=== PATIENT | female | born 1965 | race Caucasian/White ===

== ENCOUNTER 2024-04-05 02:55 | Inpatient (IN) | payer MEDICAID ==
[~2024-04-05] VITALS: Ht 170.2 cm; Wt 61.0 kg
[2024-04-05 03:20] LABS: BASOPHILS # (AUTO) 0.1 X10'3 (0-0.2); BASOPHILS % (AUTO) 1.1 % (0-1); EOSINOPHILS # (AUTO) 0.3 X10'3 (0-0.9); EOSINOPHILS % (AUTO) 2.6 % (0-6); HEMATOCRIT 37.1 % (35.0-45.0); HEMOGLOBIN 12.7 g/dl (12.0-16.0); LYMPHOCYTES # (AUTO) 2.3 X10'3 (1.1-4.8); MEAN CORPUSCULAR HGB CONC 34.2 g/dL (33.0-36.5); MEAN CORPUSCULAR VOLUME 87.7 FL (78-98); MEAN PLATELET VOLUME 7.5 FL (7.4-10.4); MONOCYTES # (AUTO) 0.8 X10'3 (0-0.9); MONOCYTES % (AUTO) 7.9 % (2-12); NEUTROPHILS # (AUTO) 6.4 X10'3 (1.8-7.7); NEUTROPHILS % (AUTO) 65.4 % (42-75); PLATELET COUNT 457 X10'3 (140-440); RED BLOOD COUNT 4.23 X10'6 (4.20-5.60); RED CELL DISTRIBUTION WIDTH 15.5 % (11.5-14.5); WHITE BLOOD COUNT 9.8 X10'3 (4.5-11.0)
[2024-04-05 03:37] LABS: ALBUMIN 3.2 G/DL (3.4-5.0); ANION GAP 12 (8-16); BLOOD UREA NITROGEN 36 MG/DL (7-18); BUN/CREATININE RATIO 27.1 (10.0-20.0); CALCIUM 8.6 MG/DL (8.5-10.1); CHLORIDE 104 MMOL/L (99-107); CREATININE 1.33 MG/DL (0.40-0.90); GLUCOSE 118 MG/DL (70-104); POTASSIUM 3.3 MMOL/L (3.5-5.1); SODIUM 137 MMOL/L (135-145); TOTAL CARBON DIOXIDE 21.5 MMOL/L (24-32); eCRCL 43 ML/MIN; eGFR 41 ML/MIN
[2024-04-05] MEDS ORDERED: FURO-150 PO (04:45)
[2024-04-05] MEDS ORDERED: LISI20TA28 PO (04:47)
[2024-04-05] MEDS ORDERED: SPIR25TA5 PO (04:48)
[2024-04-05] MEDS ORDERED: CARV-50 PO (04:49)
[2024-04-05] MEDS ORDERED: magnesium sulf-water 4G/100mL 100 ML IV PRN (04:50)
[2024-04-05] MEDS ORDERED: magnesium sulf-water 2g/50mL 50 ML IV PRN (04:50)
[2024-04-05] MEDS ORDERED: magnesium Cl slow-release 64mg tablet PO PRN (04:50)
[2024-04-05] MEDS ORDERED: potassium Cl 40MEQ/1/2NS 520ml 520 ML IV PRN (04:50)
[2024-04-05] MEDS ORDERED: acetaminophen 325mg tablet PO PRN (04:50)
[2024-04-05] MEDS ORDERED: potassium Cl 20 mEq SR tablet PO PRN (04:50)
[2024-04-05] MEDS ORDERED: magnesium hydroxide 30ml (MOM) UD suspension PO PRN (04:50)
[2024-04-05] MEDS ORDERED: EMPA10TA PO (04:50)
[2024-04-05] MEDS ORDERED: mag hydrox/Alum hydrox/simeth 30ml oral suspension PO PRN (04:50)
[2024-04-05] MEDS ORDERED: ATOR40TA PO (04:51)
[2024-04-05] MEDS ORDERED: ASPI-1265 PO (04:52)
[2024-04-05] MEDS ORDERED: CefTRIAXone 2gm/D5W 50ml BAG 50 ML IV SCH (04:55)
[2024-04-05] MEDS: normal saline 500ml IV soln 500 ML IV ONE (05:13)
[2024-04-05 06:26] LABS: ALANINE AMINOTRANSFERASE 28 U/L (12-78); ALBUMIN 3.3 G/DL (3.4-5.0); ALBUMIN/GLOBULIN RATIO 0.7 (1.1-1.5); ALKALINE PHOSPHATASE 82 IU/L (46-116); ANION GAP 13 (8-16); ASPARTATE AMINO TRANSFERASE 22 U/L (10-37); BILIRUBIN,TOTAL 0.6 MG/DL (0.1-1.0); BLOOD UREA NITROGEN 34 MG/DL (7-18); BUN/CREATININE RATIO 31.8 (10.0-20.0); CALCIUM 8.5 MG/DL (8.5-10.1); CHLORIDE 108 MMOL/L (99-107); CREATININE 1.07 MG/DL (0.40-0.90); GLUCOSE 99 MG/DL (70-104); POTASSIUM 3.2 MMOL/L (3.5-5.1); SODIUM 140 MMOL/L (135-145); TOTAL CARBON DIOXIDE 19.1 MMOL/L (24-32); TOTAL PROTEIN 8.1 G/DL (6.4-8.2); eCRCL 54 ML/MIN; eGFR 52 ML/MIN
[2024-04-05] MEDS: labetalol 20mg/4ml (5mg/ml) syringe IV ONE (06:52)
[2024-04-05] MEDS: docusate sod 100mg capsule PO SCH (08:00)
[2024-04-05] MEDS ORDERED: lisinopril 20mg tablet PO SCH (08:00)
[2024-04-05] MEDS ORDERED: aspirin 81mg, enteric-coated 1 TAB TABLET.DR PO SCH (08:00)
[2024-04-05] MEDS ORDERED: atorvastatin 20mg tablet PO SCH (08:00)
[2024-04-05] MEDS: K and/or MAG REPLACEMENT MC SCH (08:00)
[2024-04-05 08:08] LABS: CHOL/HDL RATIO 3.2 (0.00-4.99); CHOLESTEROL 178 MG/DL (0-200); HDL CHOLESTEROL 55 MG/DL (35-60); LDL CHOLESTEROL 106 MG/DL (50-100); THYROID STIMULATING HORMONE 3.04 ulU/ml (0.34-4.50); TRIGLYCERIDES 79 MG/DL (20-135)
[2024-04-05 08:17] LABS: HEMOGLOBIN A1C 5.4 % (4.5-6.2)
[2024-04-05 08:17] LABS: PRO BRAIN NATRIURETIC PEPTIDE > 30000 PG/ML (0-125)
[2024-04-05 08:57] LABS: FREE T4 (FREE THYROXINE) 1.22 NG/DL (0.73-1.40)
[2024-04-05 09:30] VITALS: BP 151/84; PULSE 74; RESP 16; TEMP 97.9; O2SAT 99
[2024-04-05] MEDS ORDERED: hydrALAZINE 20mg/ml inj. IV PRN (10:15)
[2024-04-05] MEDS: furosemide 10 MG/1 ML 10ml inj IV ONE (10:27)
[2024-04-05] MEDS: aspirin 81mg tab.chew PO SCH (10:29)
[2024-04-05] MEDS: spironolactone 25 MG tablet PO SCH (10:29)
[2024-04-05] MEDS: carVEDilol 12.5mg tablet PO SCH (10:30)
[2024-04-05] MEDS: EMPAGLIFLOZIN 10 MG TABLET PO SCH (10:31)
[2024-04-05] MEDS: enoxaparin 60mg/0.6ml syringe SUBCUT SCH (10:31)
[2024-04-05] MEDS: potassium Cl 20 mEq SR tablet PO PRN (10:38)
[2024-04-05 11:00] VITALS: BP 148/84; PULSE 82; RESP 26; TEMP 98.1; O2SAT 97
[2024-04-05] MEDS: ondansetron/PF 4mg/2ml inj IV PRN (13:26)
[2024-04-05] MEDS: CefTRIAXone 2gm/D5W 50ml BAG 50 ML IV SCH (14:14)
[2024-04-05 15:00] VITALS: BP 137/77; PULSE 72; RESP 10; TEMP 97.6; O2SAT 98
[2024-04-05 18:00] VITALS: BP 125/77; PULSE 69; RESP 12; TEMP 97.6; O2SAT 97
[2024-04-05] MEDS: sacubitril/valsartan 24mg-26mg tablet PO SCH (19:52)
[2024-04-05] MEDS: furosemide 40mg/4ml inj IV SCH (19:54)
[2024-04-05] MEDS: atorvastatin 20mg tablet PO SCH (20:00)
[2024-04-05 20:30] VITALS: RESP 16; O2SAT 95
[2024-04-05 21:02] LABS: BILIRUBIN,URINE NEGATIVE (Neg); CLARITY,URINE CLEAR (Clear); COLOR,URINE YELLOW (Yellow); GLUCOSE, URINE >=1000 mg/dl (Neg); KETONES,URINE NEGATIVE (Neg); LEUKOCYTE ESTERASE ,URINE SMALL (Neg); NITRITES, URINE NEGATIVE (Neg); OCCULT BLOOD,URINE NEGATIVE (Neg); PROTEIN,URINE NEGATIVE (Neg); UROBILINOGEN,URINE 0.2 E.U/dL (0.2-1.0)
[2024-04-05 21:07] LABS: UA COLLECTION TYPE NON-SPECIFIED
[2024-04-05 21:08] LABS: BACTERIA,URINE FEW /HPF (Neg); RBC,URINE NONE SEEN /HPF (0-2); SQUAMOUS EPITHELIAL CELL,UR MODERATE /LPF (FEW)
[2024-04-05 21:26] LABS: URINE AMPHETAMINE SCREEN NEGATIVE (Neg); URINE BARBITUATE SCREEN NEGATIVE (Neg); URINE BENZODIAZEPINES SCREEN NEGATIVE (Neg); URINE CANNABINOID SCREEN POSITIVE (Neg); URINE COCAINE SCREEN NEGATIVE (Neg); URINE METHADONE SCREEN NEGATIVE (Neg); URINE OPIATE SCREEN NEGATIVE (Neg); URINE PHENCYCLIDINE SCREEN NEGATIVE (Neg)
[2024-04-05 22:00] VITALS: BP 139/82; PULSE 76; RESP 14; TEMP 97.8; O2SAT 98
[2024-04-06] VITALS (7 sets, daily range): BP systolic 109–151; BP diastolic 54–83; PULSE 65–77; RESP 12–21; TEMP 97.6–98.8; O2SAT 95–99
[2024-04-06 06:55] LABS: BASOPHILS # (AUTO) 0.1 X10'3 (0-0.2); BASOPHILS % (AUTO) 1.2 % (0-1); EOSINOPHILS # (AUTO) 0.3 X10'3 (0-0.9); EOSINOPHILS % (AUTO) 4.2 % (0-6); HEMATOCRIT 39.1 % (35.0-45.0); LYMPHOCYTES # (AUTO) 1.8 X10'3 (1.1-4.8); LYMPHOCYTES % (AUTO) 24.1 % (21-51); MEAN CORPUSCULAR HEMOGLOBIN 29.4 PG (27.0-31.0); MEAN CORPUSCULAR HGB CONC 33.4 g/dL (33.0-36.5); MEAN CORPUSCULAR VOLUME 88.2 FL (78-98); MEAN PLATELET VOLUME 7.8 FL (7.4-10.4); MONOCYTES # (AUTO) 0.8 X10'3 (0-0.9); MONOCYTES % (AUTO) 10.2 % (2-12); NEUTROPHILS # (AUTO) 4.6 X10'3 (1.8-7.7); NEUTROPHILS % (AUTO) 60.3 % (42-75); PLATELET COUNT 474 X10'3 (140-440); RED BLOOD COUNT 4.43 X10'6 (4.20-5.60); RED CELL DISTRIBUTION WIDTH 15.3 % (11.5-14.5); WHITE BLOOD COUNT 7.6 X10'3 (4.5-11.0)
[2024-04-06 07:04] LABS: APTT 32 SECONDS (22-32); INR 1.1 INR; PROTHROMBIN TIME 11.1 SECONDS (9.0-12.0)
[2024-04-06 07:21] LABS: ALANINE AMINOTRANSFERASE 41 U/L (12-78); ALBUMIN 3.2 G/DL (3.4-5.0); ALBUMIN/GLOBULIN RATIO 0.7 (1.1-1.5); ALKALINE PHOSPHATASE 80 IU/L (46-116); ANION GAP 11 (8-16); ASPARTATE AMINO TRANSFERASE 28 U/L (10-37); BILIRUBIN,TOTAL 0.5 MG/DL (0.1-1.0); BLOOD UREA NITROGEN 39 MG/DL (7-18); BUN/CREATININE RATIO 25.5 (10.0-20.0); CALCIUM 8.9 MG/DL (8.5-10.1); CHLORIDE 103 MMOL/L (99-107); CREATININE 1.53 MG/DL (0.40-0.90); GLUCOSE 106 MG/DL (70-104); PHOSPHORUS 5.5 MG/DL (2.3-4.5); POTASSIUM 4.2 MMOL/L (3.5-5.1); SODIUM 136 MMOL/L (135-145); TOTAL CARBON DIOXIDE 21.8 MMOL/L (24-32); TOTAL PROTEIN 7.8 G/DL (6.4-8.2); eCRCL 38 ML/MIN; eGFR 35 ML/MIN
[2024-04-06] MEDS ORDERED: CefTRIAXone 2gm/D5W 50ml BAG 50 ML IV SCH (08:00)
[2024-04-06] MEDS ORDERED: spironolactone 25 MG tablet PO SCH (08:30)
[2024-04-06] MEDS: clopidogrel 75mg tablet PO SCH (09:06)
[2024-04-06] MEDS ORDERED: ATOR20TA66 PO (10:39)
[2024-04-06] MEDS ORDERED: SULF1TAB49 PO (15:43)
[2024-04-07 02:00] VITALS: BP 124/61; PULSE 62; RESP 19; TEMP 97.8; O2SAT 97
[2024-04-07 06:00] VITALS: BP 104/51; PULSE 59; RESP 19; TEMP 97.4; O2SAT 97
[2024-04-07 06:03] LABS: BASOPHILS # (AUTO) 0.1 X10'3 (0-0.2); BASOPHILS % (AUTO) 1.1 % (0-1); EOSINOPHILS # (AUTO) 0.3 X10'3 (0-0.9); EOSINOPHILS % (AUTO) 4.2 % (0-6); HEMOGLOBIN 14.3 g/dl (12.0-16.0); LYMPHOCYTES # (AUTO) 1.9 X10'3 (1.1-4.8); LYMPHOCYTES % (AUTO) 26.5 % (21-51); MEAN CORPUSCULAR HEMOGLOBIN 30.4 PG (27.0-31.0); MEAN CORPUSCULAR HGB CONC 34.1 g/dL (33.0-36.5); MEAN CORPUSCULAR VOLUME 89.2 FL (78-98); MEAN PLATELET VOLUME 7.6 FL (7.4-10.4); MONOCYTES # (AUTO) 0.9 X10'3 (0-0.9); NEUTROPHILS # (AUTO) 4.1 X10'3 (1.8-7.7); NEUTROPHILS % (AUTO) 56.2 % (42-75); PLATELET COUNT 484 X10'3 (140-440); RED BLOOD COUNT 4.71 X10'6 (4.20-5.60); RED CELL DISTRIBUTION WIDTH 15.8 % (11.5-14.5); WHITE BLOOD COUNT 7.3 X10'3 (4.5-11.0)
[2024-04-07 06:14] LABS: APTT 29 SECONDS (22-32); INR 1.1 INR
[2024-04-07 06:16] LABS: ALANINE AMINOTRANSFERASE 41 U/L (12-78); ALBUMIN 3.4 G/DL (3.4-5.0); ALBUMIN/GLOBULIN RATIO 0.7 (1.1-1.5); ALKALINE PHOSPHATASE 79 IU/L (46-116); ANION GAP 10 (8-16); ASPARTATE AMINO TRANSFERASE 18 U/L (10-37); BILIRUBIN,TOTAL 0.2 MG/DL (0.1-1.0); BLOOD UREA NITROGEN 59 MG/DL (7-18); BUN/CREATININE RATIO 35.5 (10.0-20.0); CALCIUM 9.2 MG/DL (8.5-10.1); CHLORIDE 102 MMOL/L (99-107); CREATININE 1.66 MG/DL (0.40-0.90); GLUCOSE 90 MG/DL (70-104); PHOSPHORUS 4.8 MG/DL (2.3-4.5); POTASSIUM 4.3 MMOL/L (3.5-5.1); SODIUM 137 MMOL/L (135-145); TOTAL CARBON DIOXIDE 24.8 MMOL/L (24-32); eCRCL 35 ML/MIN; eGFR 32 ML/MIN
[2024-04-07] MEDS: furosemide 40mg tablet PO SCH (07:44)
[2024-04-07] MEDS ORDERED: FURO-150 PO (07:49)
[2024-04-07 07:50] VITALS: BP 116/57; PULSE 60
[2024-04-07 08:00] VITALS: RESP 16
[2024-04-07 10:00] VITALS: BP 127/61; PULSE 68; RESP 16; TEMP 98; O2SAT 98
[2024-04-07] MEDS ORDERED: CLOP75TA34 PO (13:41)
[2024-04-07] MEDS ORDERED: SACU1TAB PO (13:41)
== END 2024-04-07 15:03 | disposition home or self-care (01) | DRG 190 ==
LOC: ER 02:56 → ED HOLD 04:51 → PCU 3S 07:44
PROVIDERS: ADMIT Internal Medicine Critical Care Medicine; ATTEND Internal Medicine
DX: I21.4 Non-ST elevation (NSTEMI) myocardial infarction (principal); E87.20 Acidosis, unspecified; N17.9 Acute kidney failure, unspecified; I13.0 Hypertensive heart and chronic kidney disease with heart failure and stage 1 through stage 4 chronic kidney disease, or unspecified chronic kidney disease; I50.22 Chronic systolic (congestive) heart failure; F17.210 Nicotine dependence, cigarettes, uncomplicated; F31.9 Bipolar disorder, unspecified; Z20.822 Contact with and (suspected) exposure to COVID-19; N18.30 Chronic kidney disease, stage 3 unspecified; F43.10 Post-traumatic stress disorder, unspecified; N39.0 Urinary tract infection, site not specified; E87.6 Hypokalemia; F15.10 Other stimulant abuse, uncomplicated; Z90.49 Acquired absence of other specified parts of digestive tract; Z86.73 Personal history of transient ischemic attack (TIA), and cerebral infarction without residual deficits; Z90.710 Acquired absence of both cervix and uterus; Z79.82 Long term (current) use of aspirin; Z79.899 Other long term (current) drug therapy
CPT/HCPCS: 36415; 71045; 80048; 80053; 80061; 80305; 81001; 83036; 83735; 83880; 84100; 84439; 84443; 84484; 85025; 85610; 85730; 87040; 87081; 87502; 87503; 87811; 93005; 93306; 97161; 97530; 99291; G0378; J0696; J1650; J1940; J2405; J3490; J7040

== ENCOUNTER 2024-09-07 20:10 | Inpatient (IN) | payer MEDICAID ==
[~2024-09-07] VITALS: Ht 170.2 cm; Wt 52.5 kg
[~2024-09-07 20:10] MED LIST: ASPI-1265 PO; ATOR20TA66 PO; CARV-50 PO; CLOP75TA34 PO; EMPA10TA PO; FURO-150 PO; SACU1TAB PO; SPIR25TA5 PO
--- NOTE | 2024-09-07 20:15 | Physician Documentation ---
History of Present Illness ~ Stated Complaint: NSTEMI Time Seen by MD: 20:12 HPI Patient presents to the emergency room as a transfer from [facility] for NSTEMI. Patient was seen previously at their facility and diagnosed with a NSTEMI left against medical advice. She presented to their facility complaining of some intermittent chest pain as well as generalized weakness and fatigue and shortness of breath. She is also actively using methamphetamine with history of congestive heart failure in prior stroke with residual deficits in her left leg and slurred speech. She denies any current chest pain Medication Reconciliation Allergies: Coded Allergies: No Known Allergies (Unverified , 04/05/24) Scheduled Aspirin (Aspirin), 1 TAB PO DAILY, (Reported) Atorvastatin Calcium (Atorvastatin Calcium), 80 MG PO DAILY Carvedilol* (Coreg*), 0.5 TAB PO BID, (Reported) Clopidogrel Bisulfate (Clopidogrel), 75 MG PO DAILY Empagliflozin (Jardiance), 1 TAB PO DAILY, (Reported) Furosemide* (Lasix*), 2 TAB PO DAILY Sacubitril/Valsartan (Entresto 24 mg-26 mg Tablet), 1 TABLET PO BID Spironolactone (Spironolactone), 1 TAB PO DAILY, (Reported) Review of Systems ROS All review of systems negative except as per HPI Physical Exam Physical Exam General: Patient is awake, alert, oriented x4 in no acute distress. Some slurring of speech Head: Normocephalic and atraumatic. Eyes: Conjunctival normal. EOMI. PERRL. ENT: Mucous membranes moist. Neck: Supple, trachea is midline. Chest: Clear to auscultation bilaterally without rales, rhonchi, or wheezes. There is no accessory muscle use or retractions. Cardiac: RRR without murmurs, gallops, or rubs. Neuro: Cranial nerves II-XII grossly intact. Weakness noted to flexion extension of left leg Progress Results/Orders Results/Orders Orders - BARRIE DE LA FUENTE MD Heparin 25,000 Unit/250ml Bag (Heparin 2 (09/07/24 20:15) Heparin 10,000 Unit/Ml 1ml (Heparin 10,0 (09/07/24 20:15) Cbc/Diff (09/08/24 03:00) Cbc/Diff (09/09/24 03:00) Cbc/Diff (09/10/24 03:00) Cbc/Diff (09/11/24 03:00) Cbc/Diff (09/12/24 03:00) Page Hospitalist (09/07/24 20:49) Fill Out Med Reconciliation (09/07/24 20:49) Completed Orders - BARRIE DE LA FUENTE MD Pt Inr (09/07/24 20:12) PTT (09/07/24 20:12) Cbc/Diff (09/07/24 20:12) BMP (09/07/24 20:12) Hs Troponin I W Calculations (09/07/24 20:12) No Initial Heparin Drip Bolus (No Initia (09/07/24 20:45) Medications Received in ER Medications (Trade) Dose Ordered Sig/Merari Route PRN Reason Start Time Stop Time Status Last Admin Dose Admin Heparin Sodium/ Dextrose 250 ml @ 6 mls/hr [id number] PRN IV TO MAINTAIN PTT WITHIN RANGE 09/07/24 20:15 09/07/24 21:10 6 MLS/HR Vital Signs 09/07/24 20:13 Temp 97.8 Pulse 86 Resp 16 B/P (MAP) 160/110 Pulse Ox 96 Laboratory Tests Test 09/07/24 20:22 White Blood Count 8.7 Red Blood Count 4.37 Hemoglobin 13.1 Hematocrit 37.4 Mean Corpuscular Volume 85.7 Mean Corpuscular Hemoglobin 30.1 Mean Corpuscular Hemoglobin Concent 35.1 Red Cell Distribution Width 17.0 H Platelet Count 348 Mean Platelet Volume 7.8 Neutrophils (%) (Auto) 63.6 Lymphocytes (%) (Auto) 27.9 Monocytes (%) (Auto) 5.2 Eosinophils (%) (Auto) 2.0 Basophils (%) (Auto) 1.3 H Neutrophils # (Auto) 5.6 Lymphocytes # (Auto) 2.4 Monocytes # (Auto) 0.5 Eosinophils # (Auto) 0.2 Basophils # (Auto) 0.1 CBC Comment Prothrombin Time 10.9 INR International Normalized Ratio 1.1 Activated Partial Thromboplast Time 27 Coagulation Comments Sodium Level 139 Potassium Level 3.2 L Chloride Level 103 Carbon Dioxide Level 22.7 L Anion Gap 13 Blood Urea Nitrogen 40 H Creatinine 1.55 H Estimated GFR/1.73 m2 34 BUN/Creatinine Ratio 25.8 H Glucose Level 108 H Calcium Level 8.9 Troponin I High Sensitivity 1122 *H Albumin 3.3 L Chemistry Comments EKG/XRAY/CT/US/VASC/MRI EKG : Additional Comment EKG interpreted by myself shows time of 2013, rate 81, sinus rhythm, left axis deviation, left bundle-branch block, nonspecific ST-T changes Medical Decision Making Findings Patient presented to the emergency room with being transferred from [facility] for NSTEMI. We will continue heparin. No current chest pain. Departure Admitted to Inpatient Unit: yes, to hospitalist Impression: Primary Impression: NSTEMI (non-ST elevated myocardial infarction) Condition: Guarded Referrals: NO PRIMARY CARE PROVIDER (PCP) Critical Care Note Total Time (mins): 45 Critical Care Note The very real possibility of a deterioration of this patient's condition required the highest level of my preparedness for sudden, emergent intervention. I provided critical care services, which included medication orders, frequent reevaluations of the patient's condition and response to treatment, ordering and reviewing test results, and discussing the case with various consultants. Excludes time spent performing separately billable procedures. The critical care time associated with the care of the patient was 45 minutes not counting procedures Signature Scribe Signature: No scribe Attestation: The note accurately reflects work and decisions made by me.Barrie De La Fuente MD 09/07/24 21:16 BARRIE DE LA FUENTE MD Sep 07, 2024 20:15
[2024-09-07 20:33] LABS: BASOPHILS # (AUTO) 0.1 X10'3 (0-0.2); BASOPHILS % (AUTO) 1.3 % (0-1); EOSINOPHILS # (AUTO) 0.2 X10'3 (0-0.9); HEMATOCRIT 37.4 % (35.0-45.0); HEMOGLOBIN 13.1 g/dl (12.0-16.0); LYMPHOCYTES # (AUTO) 2.4 X10'3 (1.1-4.8); LYMPHOCYTES % (AUTO) 27.9 % (21-51); MEAN CORPUSCULAR HEMOGLOBIN 30.1 PG (27.0-31.0); MEAN CORPUSCULAR HGB CONC 35.1 g/dL (33.0-36.5); MEAN CORPUSCULAR VOLUME 85.7 FL (78-98); MEAN PLATELET VOLUME 7.8 FL (7.4-10.4); MONOCYTES # (AUTO) 0.5 X10'3 (0-0.9); MONOCYTES % (AUTO) 5.2 % (2-12); NEUTROPHILS # (AUTO) 5.6 X10'3 (1.8-7.7); NEUTROPHILS % (AUTO) 63.6 % (42-75); PLATELET COUNT 348 X10'3 (140-440); RED BLOOD COUNT 4.37 X10'6 (4.20-5.60); WHITE BLOOD COUNT 8.7 X10'3 (4.5-11.0)
[2024-09-07 20:44] LABS: ALBUMIN 3.3 G/DL (3.4-5.0); ANION GAP 13 (8-16); BLOOD UREA NITROGEN 40 MG/DL (7-18); BUN/CREATININE RATIO 25.8 (10.0-20.0); CALCIUM 8.9 MG/DL (8.5-10.1); CHLORIDE 103 MMOL/L (99-107); CREATININE 1.55 MG/DL (0.40-0.90); GLUCOSE 108 MG/DL (70-104); SODIUM 139 MMOL/L (135-145); TOTAL CARBON DIOXIDE 22.7 MMOL/L (24-32); eCRCL 31 ML/MIN; eGFR 34 ML/MIN
[2024-09-07 20:45] LABS: POTASSIUM 3.2 MMOL/L (3.5-5.1)
[2024-09-07 20:46] LABS: APTT 27 SECONDS (22-32); INR 1.1 INR; PROTHROMBIN TIME 10.9 SECONDS (9.0-12.0)
[2024-09-07] MEDS: heparin 25,000 UNIT/250ml bag 250 ML IV PRN (21:10)
[2024-09-07] MEDS: HEPARIN DRIP INITAL BOLUS --- DO NOT GIVE/ORDER MC ONE (21:14)
--- NOTE | 2024-09-07 21:23 | ELECTROCARDIOGRAPH REPORT ---
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 Roger Waters Measurements Intervals [place] Rate: 81 P: 70 TN: 171 QRS: -65 QRSD: 187 T: 99 QT: 482 QTc: 560 Interpretive Statements Sinus rhythm Probable left atrial enlargement Left bundle branch block Baseline wander in lead(s) I,II,aVR Electronically Signed On 09-09-2024 18:24:[address] Roger Waters Please click the below link to view image of tracing.
--- NOTE | 2024-09-07 21:30 | ELECTROCARDIOGRAPH REPORT ---
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 Roger Waters Measurements Intervals [place] Rate: 89 P: 81 MN: 159 QRS: -74 QRSD: 184 T: 94 QT: 465 QTc: 566 Interpretive Statements Sinus rhythm Multiple premature complexes, vent & supraven Left bundle branch block Electronically Signed On 09-09-2024 18:24:[address] Roger Waters Please click the below link to view image of tracing.
[2024-09-07] MEDS: heparin 10,000 units/1 ML INJ IV PRN (21:35)
[2024-09-07] MEDS: MESSAGE TO NURSING IV ONE (21:51)
[2024-09-07] MEDS ORDERED: NO HOME MEDS (22:13)
[2024-09-07] MEDS ORDERED: magnesium sulf-water 2g/50mL 50 ML IV PRN (22:20)
[2024-09-07] MEDS ORDERED: magnesium Cl slow-release 64mg tablet PO PRN (22:20)
[2024-09-07] MEDS ORDERED: potassium Cl 20 mEq SR tablet PO PRN (22:20)
[2024-09-07] MEDS ORDERED: potassium Cl 40MEQ/1/2NS 520ml 520 ML IV PRN (22:20)
[2024-09-07] MEDS ORDERED: magnesium sulf-water 4G/100mL 100 ML IV PRN (22:20)
[2024-09-07] MEDS ORDERED: magnesium hydroxide 30ml (MOM) UD suspension PO PRN (22:20)
[2024-09-07] MEDS ORDERED: ondansetron/PF 4mg/2ml inj IV PRN (22:20)
--- NOTE | 2024-09-07 22:46 | HISTORY AND PHYSICAL-Residence ---
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 Patient was admitted in [place] for NSTEMI and she left against medical advice as medical chart. Today patient visited [facility] for progressive shortness of breaths patient started about four days ago. Patient denied any chest pain chest compression profound sweating. As the medical chart she had low appetite and decreased p.o. intake Allergies: Coded Allergies: No Known Allergies (Unverified , 04/05/24) Home Medications Home Medications Active Reported No Home Medications (Home Med List) Each Past Medical History Past Medical History Multiple NSTEMI Heart failure with reduced ejection fraction Past Surgical History Surgical History Comment Appendectomy Hysterectomy Past Social History Smoking: Cigarettes (Smoke one pack a day daily) Alcohol Use: None Drug Use: Marijuana, Methamphetamine ROS ROS The history of present illness included a review of system, which yielded relevant positives and negatives Exam Vitals: Vital Signs Date Time Temp Pulse Resp B/P (MAP) Pulse Ox O2 Delivery O2 Flow Rate FiO2 09/07/24 22:06 99 26 149/79 (102) 98 0 09/07/24 20:13 97.8 General: General: Awake and Alert, cachectic, ill appearing, sleepy, mild distress. HEENT: Conjunctiva pink, Sclera clear, Mucus Membranes dry. Neck: Supple without masses and tenderness. Resp: Lungs clear to auscultation bilaterally. Heart: Regular Rate and rhythm, normal S1 and S2 Abdomen: Soft and non tender Extremities: No cyanosis,clubbing or edema. Skin: Warm and Dry. Neurological: Speech is slurry, alert, and oriented x 4, left lower extremity strength: 3/5 Diagnostic Data Last Recorded Lab Results: 09/07/24202109/07/242021 Diagnostic Data: Laboratory Tests Test 09/07/24 20:22 Prothrombin Time 10.9 SECONDS (9.0-12.0) INR International Normalized Ratio 1.1 INR Activated Partial Thromboplast Time 27 SECONDS (22-32) Coagulation Comments Advance Care Planning Advanced Care plannin - 30 Minutes Additional Plan 59 years old female with history of NSTEMI, CHF with reduced ejection fraction, multiple CVA with left-sided extremity weakness, methamphetamine abuse transferred from [place] to our hospital due to NSTEMI NSTEMI Active methamphetamine abuse EKG: Sinus rhythm, rate 89, multiple PVC, left bundle dora block, Sgarbossa criteria 2 point, low specificity ED physician believes patient had similar EKG/symptoms in the past Elevated troponin 1122 in our facility unchanged from [facility], and is trending down in our hospital Patient had NSTEMI about couple of days ago in [place] as report and patient left against medical advice. Chest x-ray: Patchy opacities in the right lung may reflect atelectasis/scarring versus pneumonia. Patient received aspirin 325 and mg and Lasix. Patient is hemodynamically stable, we will continue aspirin 81, atorvastatin and carvedilol Heparin drip started we will continue Cardiology consult CHF with reduced ejection fraction Echocardiography in 04/09: Dilated LV size and severely reduced function. Mild concentric hypertrophy. LVEF is 10-15%. RV size is normal with severely reduced systolic function. RVSP is estimated at 51 mmHg. Left atrium is mildly dilated. Trileaflet AV appears mildly sclerotic without stenosis. Trace insufficiency. Mild MV annular calcification without stenosis. Mild regurgitation. TV appears normal with moderate regurgitation.Normal pericardium. No effusion. Received one dose IV Lasix, we will continue IV Lasix 20 daily, hospitalist team will evaluate patient in am We will continue metoprolol aspirin at this time Need GDMT optimization after patient was more stable in a.m. Cardiology consult Possible pneumonia Chest x-ray: hest x-ray: Patchy opacities in the right lung may reflect atelectasis/scarring versus pneumonia. 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
[2024-09-07 22:53] LABS: ALANINE AMINOTRANSFERASE 38 U/L (12-78); ASPARTATE AMINO TRANSFERASE 29 U/L (10-37); CHOL/HDL RATIO 3.1 (0.00-4.99); CHOLESTEROL 165 MG/DL (0-200); HDL CHOLESTEROL 54 MG/DL (35-60); LDL CHOLESTEROL 97 MG/DL (50-100); TRIGLYCERIDES 60 MG/DL (20-135)
[2024-09-07 22:54] LABS: HEMOGLOBIN A1C 5.3 % (4.5-6.2)
[2024-09-07] MEDS: atorvastatin 20mg tablet PO SCH (22:55)
[2024-09-07 23:30] LABS: BILIRUBIN,URINE NEGATIVE (Neg); CLARITY,URINE CLEAR (Clear); COLOR,URINE YELLOW (Yellow); GLUCOSE, URINE NEGATIVE (Neg); KETONES,URINE NEGATIVE (Neg); LEUKOCYTE ESTERASE ,URINE NEGATIVE (Neg); NITRITES, URINE NEGATIVE (Neg); OCCULT BLOOD,URINE TRACE-INTACT (Neg); PROTEIN,URINE NEGATIVE (Neg); UROBILINOGEN,URINE 0.2 E.U/dL (0.2-1.0)
[2024-09-07 23:32] LABS: UA COLLECTION TYPE NON-SPECIFIED
[2024-09-07 23:35] VITALS: RESP 15
[2024-09-07 23:35] LABS: MUCUS STRANDS FEW /LPF (Neg); SQUAMOUS EPITHELIAL CELL,UR FEW /LPF (FEW)
[2024-09-07 23:36] LABS: BACTERIA,URINE FEW /HPF (Neg); RBC,URINE 0-2 /HPF (0-2); URINE AMPHETAMINE SCREEN POSITIVE (Neg); URINE BARBITUATE SCREEN NEGATIVE (Neg); URINE BENZODIAZEPINES SCREEN NEGATIVE (Neg); URINE CANNABINOID SCREEN POSITIVE (Neg); URINE COCAINE SCREEN NEGATIVE (Neg); URINE METHADONE SCREEN NEGATIVE (Neg); URINE OPIATE SCREEN NEGATIVE (Neg); URINE PHENCYCLIDINE SCREEN NEGATIVE (Neg); WBC,URINE 0-4 /HPF (0-4)
[2024-09-07 23:50] VITALS: BP 168/117; PULSE 80; RESP 13; TEMP 98.2; O2SAT 97
[2024-09-07 23:57] LABS: PRO BRAIN NATRIURETIC PEPTIDE > 30000 PG/ML (0-125)
[2024-09-08] VITALS (18 sets, daily range): BP systolic 127–172; BP diastolic 60–110; PULSE 59–80; RESP 14–26; TEMP 96.8–97.6; O2SAT 95–99
[2024-09-08] MEDS: metoprolol tartrate 50mg tablet PO ONE (00:05)
--- NOTE | 2024-09-08 01:49 | RADIOLOGY REPORT ---
CHEST RADIOGRAPH Indication: Shortness of breaths Technique: Single frontal view of the chest was obtained COMPARISON: DI CHEST,SINGLE VIEW on DOS: 04/05/24 FINDINGS: Lines and Tubes: None Lungs: Patchy opacities in the right lung may reflect atelectasis/scarring versus pneumonia. COPD. Pleura: No effusion. No pneumothorax. Cardiomediastinal contours: Mild cardiomegaly Bones: Unremarkable IMPRESSION: 1. Patchy opacities in the right lung may reflect atelectasis/scarring versus pneumonia. 2. COPD
[2024-09-08] MEDS ORDERED: ATOR40TA72 (02:55)
[2024-09-08] MEDS ORDERED: CefTRIAXone/D5W-Rocephin 1gm 50 ML IV SCH (03:05)
[2024-09-08] MEDS ORDERED: ipratropium/albuterol 3ml nebule NEB PRN (03:10)
[2024-09-08] MEDS ORDERED: albuterol 2.5 MG/3 ML nebule NEB PRN (03:10)
[2024-09-08 03:49] LABS: ALANINE AMINOTRANSFERASE 33 U/L (12-78); ALBUMIN 2.8 G/DL (3.4-5.0); ALBUMIN/GLOBULIN RATIO 0.7 (1.1-1.5); ALKALINE PHOSPHATASE 83 IU/L (46-116); ANION GAP 10 (8-16); ASPARTATE AMINO TRANSFERASE 25 U/L (10-37); BILIRUBIN,TOTAL 1.3 MG/DL (0.1-1.0); BLOOD UREA NITROGEN 33 MG/DL (7-18); BUN/CREATININE RATIO 24.3 (10.0-20.0); CALCIUM 7.6 MG/DL (8.5-10.1); CHLORIDE 104 MMOL/L (99-107); CREATININE 1.36 MG/DL (0.40-0.90); GLUCOSE 100 MG/DL (70-104); MAGNESIUM 1.7 MG/DL (1.5-2.4); SODIUM 135 MMOL/L (135-145); TOTAL CARBON DIOXIDE 21.4 MMOL/L (24-32); TOTAL PROTEIN 6.6 G/DL (6.4-8.2); eCRCL 36 ML/MIN; eGFR 40 ML/MIN
[2024-09-08] MEDS: potassium Cl 20 mEq SR tablet PO PRN (04:22)
[2024-09-08] MEDS: MESSAGE TO NURSING IV ONE ×3 (05:32→20:14)
[2024-09-08 06:09] LABS: BASOPHILS # (AUTO) 0.1 X10'3 (0-0.2); BASOPHILS % (AUTO) 1.7 % (0-1); EOSINOPHILS # (AUTO) 0.2 X10'3 (0-0.9); EOSINOPHILS % (AUTO) 3.4 % (0-6); HEMATOCRIT 39.5 % (35.0-45.0); HEMOGLOBIN 13.4 g/dl (12.0-16.0); LYMPHOCYTES # (AUTO) 1.9 X10'3 (1.1-4.8); MEAN CORPUSCULAR HEMOGLOBIN 29.8 PG (27.0-31.0); MEAN CORPUSCULAR HGB CONC 33.9 g/dL (33.0-36.5); MEAN CORPUSCULAR VOLUME 87.8 FL (78-98); MEAN PLATELET VOLUME 7.7 FL (7.4-10.4); MONOCYTES # (AUTO) 0.5 X10'3 (0-0.9); MONOCYTES % (AUTO) 6.5 % (2-12); NEUTROPHILS # (AUTO) 4.3 X10'3 (1.8-7.7); NEUTROPHILS % (AUTO) 61.4 % (42-75); PLATELET COUNT 352 X10'3 (140-440); RED CELL DISTRIBUTION WIDTH 16.6 % (11.5-14.5); WHITE BLOOD COUNT 7.1 X10'3 (4.5-11.0)
[2024-09-08] MEDS: docusate sod 100mg capsule PO SCH (08:00)
[2024-09-08] MEDS: K and/or MAG REPLACEMENT MC SCH (08:00)
[2024-09-08] MEDS: CefTRIAXone/D5W-Rocephin 1gm 50 ML IV SCH (09:55)
[2024-09-08] MEDS: azithromycin/NS 500mg/250ml 250 ML IV SCH (09:56)
[2024-09-08] MEDS: carvedilol 6.25mg tablet PO SCH (09:56)
[2024-09-08] MEDS: furosemide 20 MG/2 ML vial IV SCH (09:57)
[2024-09-08] MEDS ORDERED: sacubitril/valsartan 24mg-26mg tablet PO SCH (10:55)
--- NOTE | 2024-09-08 10:58 | PROGRESS NOTE- Residence ---
Progress Note - Resident Providers to CC Resident Creating Document: CHATO JACKSON RES ~ Antibiotic Timeout Antibiotic Ordered?: No Subjective Patient seen and examined at bedside. Denies any chest pain or palpitations. She states he has been taking any of her heart medications and has been off meds for at least two months now. Recommended that she just use GDM T and be compliant with it. She is upset and emotional that she lost her dog. Encouraged her to quit using meth. Objective Vital Signs Date Time Temp Pulse Resp B/P (MAP) Pulse Ox O2 Delivery O2 Flow Rate FiO2 09/08/24 06:30 61 09/08/24 02:00 96.8 26 136/83 (100) 96 09/07/24 23:35 Room Air 0.0 Result Diagram: 09/08/24 0542 09/08/24 0320 General: Awake and Alert, cachectic, ill appearing, sleepy, mild distress. HEENT: Conjunctiva pink, Sclera clear, Mucus Membranes dry. Neck: Supple without masses and tenderness. Resp: Lungs clear to auscultation bilaterally. Heart: Regular Rate and rhythm, normal S1 and S2 Abdomen: Soft and non tender Extremities: No cyanosis,clubbing or edema. Skin: Warm and Dry. Neurological: No gross sensory or motor abnormalities. Coagulation Studies Laboratory Tests Test 09/07/24 20:22 09/08/24 04:11 Prothrombin Time 10.9 SECONDS (9.0-12.0) INR International Normalized Ratio 1.1 INR Activated Partial Thromboplast Time 27 SECONDS (22-32) APTT (Heparin Protocol) 65 SECONDS (45-60) H Coagulation Comments Assessment Assessment 59 years old female with history of NSTEMI, CHF with reduced ejection fraction, multiple CVA with left-sided extremity weakness, methamphetamine abuse transferred from [place] to our hospital due to NSTEMI Plan Plan NSTEMI Active methamphetamine abuse EKG: Sinus rhythm, rate 89, multiple PVC, left bundle dora block, Sgarbossa criteria 2 point, low specificity ED physician believes patient had similar EKG/symptoms in the past Elevated troponin 1122 in our facility unchanged from [facility], and is trending down in our hospital Patient had NSTEMI about couple of days ago in [place] as report and patient left against medical advice. Chest x-ray: Patchy opacities in the right lung may reflect atelectasis/scarring versus pneumonia. Patient received aspirin 325 and mg and Lasix. Patient is hemodynamically stable, we will continue aspirin 81, atorvastatin and carvedilol Heparin drip started we will continue 09/08/2024 Troponins: 1122,1189,876 She was diagnosed to have a left bundle-branch block in March 2024 and she was admitted here for similar complaints, she was discharged on oral medications states that she has not been taking medications since at least two months now Continue heparin drip for now Cardiology consulted, appreciate recommendations CHF with reduced ejection fraction Echocardiography in 04/09: Dilated LV size and severely reduced function. Mild concentric hypertrophy. LVEF is 10-15%. RV size is normal with severely reduced systolic function. RVSP is estimated at 51 mmHg. Left atrium is mildly dilated. Trileaflet AV appears mildly sclerotic without stenosis. Trace insufficiency. Mild MV annular calcification without stenosis. Mild regurgitation. TV appears normal with moderate regurgitation.Normal pericardium. No effusion. Received one dose IV Lasix, we will continue IV Lasix 20 daily, hospitalist team will evaluate patient in am We will continue metoprolol aspirin at this time Need GDMT optimization after patient was more stable in a.m. 09/08/2024 CHF with severely reduced EF GDMT: Currently on Coreg 6.25 p.o. b.i.d. furosemide 20 IV daily, start Entresto and Jardiance 10 p.o. daily. If blood pressure tolerates can add Aldactone tomorrow. Hold for blood pressure less than 90 and heart rate less than 60 Monitor I's and os Low-sodium diet Possible pneumonia Chest x-ray: hest x-ray: Patchy opacities in the right lung may reflect atelectasis/scarring versus pneumonia. 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 Code Status: full DVT prophylaxis: On Heparin drip Analgesia/sedation: None Line/tube: Peripheral GI prophylaxis: Protonix Diet: Heart healthy, sodium restricted Prognosis: Guarded Disposition: Continue medical management. Date of Service: Sep 08, 2024 Billing Provider: UMESH BRANHAM MD Common Visit Codes: [id number] INP/OBS CARE(HIGH) CHATO JACKSON, RES Sep 08, 2024 10:58 UMESH BRANHAM MD Sep 08, 2024 21:43
[2024-09-08] MEDS: ipratropium/albuterol 3ml nebule NEB SCH (12:00)
[2024-09-08] MEDS: EMPAGLIFLOZIN 10 MG TABLET PO SCH (18:20)
[2024-09-08] MEDS: sacubitril/valsartan 24mg-26mg tablet PO SCH (20:00)
[2024-09-08 22:27] LABS: POTASSIUM 4.8 MMOL/L (3.5-5.1)
[2024-09-08 23:03] LABS: PRO BRAIN NATRIURETIC PEPTIDE > 30000 PG/ML (0-125)
[2024-09-09] VITALS (17 sets, daily range): BP systolic 99–137; BP diastolic 48–66; PULSE 63–86; RESP 14–24; TEMP 97–97.7; O2SAT 94–99
[2024-09-09] MEDS: MESSAGE TO NURSING IV ONE ×3 (03:42→17:06)
[2024-09-09 07:13] LABS: ALKALINE PHOSPHATASE, S 97 IU/L (44-121)
[2024-09-09 07:16] LABS: BASOPHILS # (AUTO) 0.1 X10'3 (0-0.2); BASOPHILS % (AUTO) 1.3 % (0-1); EOSINOPHILS # (AUTO) 0.2 X10'3 (0-0.9); EOSINOPHILS % (AUTO) 1.9 % (0-6); HEMATOCRIT 40.1 % (35.0-45.0); HEMOGLOBIN 13.3 g/dl (12.0-16.0); LYMPHOCYTES # (AUTO) 2.5 X10'3 (1.1-4.8); LYMPHOCYTES % (AUTO) 28.3 % (21-51); MEAN CORPUSCULAR HEMOGLOBIN 29.1 PG (27.0-31.0); MEAN CORPUSCULAR HGB CONC 33.1 g/dL (33.0-36.5); MEAN CORPUSCULAR VOLUME 87.7 FL (78-98); MEAN PLATELET VOLUME 8.5 FL (7.4-10.4); MONOCYTES # (AUTO) 0.5 X10'3 (0-0.9); MONOCYTES % (AUTO) 5.9 % (2-12); NEUTROPHILS # (AUTO) 5.6 X10'3 (1.8-7.7); NEUTROPHILS % (AUTO) 62.6 % (42-75); PLATELET COUNT 348 X10'3 (140-440); RED BLOOD COUNT 4.57 X10'6 (4.20-5.60); RED CELL DISTRIBUTION WIDTH 16.6 % (11.5-14.5); WHITE BLOOD COUNT 8.9 X10'3 (4.5-11.0)
[2024-09-09 07:30] LABS: ALANINE AMINOTRANSFERASE 29 U/L (12-78); ALBUMIN/GLOBULIN RATIO 0.7 (1.1-1.5); ALKALINE PHOSPHATASE 87 IU/L (46-116); ANION GAP 14 (8-16); ASPARTATE AMINO TRANSFERASE 22 U/L (10-37); BILIRUBIN,TOTAL 0.5 MG/DL (0.1-1.0); BLOOD UREA NITROGEN 50 MG/DL (7-18); BUN/CREATININE RATIO 24.8 (10.0-20.0); CALCIUM 8.7 MG/DL (8.5-10.1); CHLORIDE 105 MMOL/L (99-107); CREATININE 2.02 MG/DL (0.40-0.90); GLUCOSE 103 MG/DL (70-104); MAGNESIUM 2.1 MG/DL (1.5-2.4); POTASSIUM 4.7 MMOL/L (3.5-5.1); SODIUM 139 MMOL/L (135-145); TOTAL CARBON DIOXIDE 20.4 MMOL/L (24-32); TOTAL PROTEIN 7.1 G/DL (6.4-8.2); eCRCL 24 ML/MIN; eGFR 25 ML/MIN
--- NOTE | 2024-09-09 12:26 | PROGRESS NOTE ---
Progress Note Cardiology Providers to CC ~ Subjective Subjective Patient seen and examined yesterday and today. Patient appears to be much calmer this morning. Denies any chest pain or shortness of breath. Objective Result Diagram: 09/09/2463409/09/24634 Objective General: Normal body habitus, no acute distress, HEENT: Sclerae clear, PERRL, gums without lesions or bleeding, oropharynx clear without erythema or exudate. Neck: Supple without enlargement of the thyroid, or lymphadenopathy, Chest: Normal size and shape, no tenderness, nonlabored breathing, Breath sounds diminished bibasilar Heart: Regular in rate and rhythm, S1 and S2 normal, no S3-S4 or murmurs. Abdomen: Soft, nontender, no organomegaly, bowel sounds present. Extremities: No edema cyanosis or clubbing. Coagulation Studies Laboratory Tests Test 09/07/24 20:22 09/09/24 10:16 Prothrombin Time 10.9 SECONDS (9.0-12.0) INR International Normalized Ratio 1.1 INR Activated Partial Thromboplast Time 27 SECONDS (22-32) APTT (Heparin Protocol) 57 SECONDS (45-60) Coagulation Comments Problem\Assessment\Plan Additional Plan 1. 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 Social work consult to arrange PMD follow up and evaluation of her social situation. 2. Chronic systolic heart failure: Are 1200 cc fluid restriction titrate diuretics as required. 3. Chronic methamphetamine abuse: Recommend abuse cessation 4. Chronic tobacco use: Stopped tobacco abuse. 5. Other comorbidities include anxiety, CKD with a BUN of 50 creatinine of 2.02 Suspected pulmonary infection on antibiotics MONTSE ISLAS MD Sep 09, 2024 12:26
--- NOTE | 2024-09-09 13:12 | ELECTROCARDIOGRAPH REPORT ---
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 STEFANI Morales Measurements Intervals [place] Rate: 74 P: 79 [place]: 166 QRS: -72 QRSD: 178 T: 91 QT: 516 QTc: 573 Interpretive Statements Sinus rhythm Atrial premature complex Left bundle branch block Electronically Signed On 09-09-2024 13:46:[address] STEFANI Morales Please click the below link to view image of tracing.
--- NOTE | 2024-09-09 13:42 | PROGRESS NOTE- Residence ---
Progress Note - Resident Providers to CC Resident Creating Document: ELOISA JACKSON RES ~ Antibiotic Timeout Antibiotic Ordered?: No Subjective Patient seen and examined at bedside. States she is feeling better today. She continues to have shortness of breath. Encouraged to try and walk around. Explained to her regarding her EF and the medications that she needs to be compliant with. Verbalized understanding. Objective Vital Signs Date Time Temp Pulse Resp B/P (MAP) Pulse Ox O2 Delivery O2 Flow Rate FiO2 09/09/24 11:00 97.7 73 18 99/66 (77) 99 Room Air 09/09/24 08:00 0.0 21 Result Diagram: 09/09/24 0635 09/09/24 0635 General: Awake and Alert, cachectic, ill appearing, sleepy, mild distress. HEENT: Conjunctiva pink, Sclera clear, Mucus Membranes dry. Neck: Supple without masses and tenderness. Resp: Lungs clear to auscultation bilaterally. Heart: Regular Rate and rhythm, normal S1 and S2 Abdomen: Soft and non tender Extremities: No cyanosis,clubbing or edema. Skin: Warm and Dry. Neurological: No gross sensory or motor abnormalities. Coagulation Studies Laboratory Tests Test 09/07/24 20:22 09/09/24 10:16 Prothrombin Time 10.9 SECONDS (9.0-12.0) INR International Normalized Ratio 1.1 INR Activated Partial Thromboplast Time 27 SECONDS (22-32) APTT (Heparin Protocol) 57 SECONDS (45-60) Coagulation Comments Assessment Assessment 59 years old female with history of NSTEMI, CHF with reduced ejection fraction, multiple CVA with left-sided extremity weakness, methamphetamine abuse transferred from [place] to our hospital due to NSTEMI Plan Plan NSTEMI Active methamphetamine abuse EKG: Sinus rhythm, rate 89, multiple PVC, left bundle dora block, Sgarbossa criteria 2 point, low specificity ED physician believes patient had similar EKG/symptoms in the past Elevated troponin 1122 in our facility unchanged from [facility], and is trending down in our hospital Patient had NSTEMI about couple of days ago in [place] as report and patient left against medical advice. Chest x-ray: Patchy opacities in the right lung may reflect atelectasis/scarring versus pneumonia. Patient received aspirin 325 and mg and Lasix. Patient is hemodynamically stable, we will continue aspirin 81, atorvastatin and carvedilol Heparin drip started we will continue 09/08/2024 Troponins: 1122,1189,876 She was diagnosed to have a left bundle-branch block in March 2024 and she was admitted here for similar complaints, she was discharged on oral medications states that she has not been taking medications since at least two months now Continue heparin drip for now Cardiology consulted, appreciate recommendations 09/09/2024 DC Heparin drip tonight at 8:00 p.m. Resume aspirin 81 Plavix 75 mg and statin 40 mg with goal LDL less than 60 CHF with reduced ejection fraction Echocardiography in 04/09: Dilated LV size and severely reduced function. Mild concentric hypertrophy. LVEF is 10-15%. RV size is normal with severely reduced systolic function. RVSP is estimated at 51 mmHg. Left atrium is mildly dilated. Trileaflet AV appears mildly sclerotic without stenosis. Trace insufficiency. Mild MV annular calcification without stenosis. Mild regurgitation. TV appears normal with moderate regurgitation.Normal pericardium. No effusion. Received one dose IV Lasix, we will continue IV Lasix 20 daily, hospitalist team will evaluate patient in am We will continue metoprolol aspirin at this time Need GDMT optimization after patient was more stable in a.m. 09/08/2024 CHF with severely reduced EF GDMT: Currently on Coreg 6.25 p.o. b.i.d. furosemide 20 IV daily, start Entresto and Jardiance 10 p.o. daily. If blood pressure tolerates can add Aldactone tomorrow. Hold for blood pressure less than 90 and heart rate less than 60 Monitor I's and os Low-sodium diet 09/09/2024 Patient is able to tolerate GDMT so far, documented blood pressure this morning appears to be soft, we will hold off on adding Aldactone at this time. Recommended to document Is&Os Acute on chronic kidney failure likely secondary to vasomotor nephropathy BUN 40, creatinine 1.55 IV Lasix 20 daily, we will continue monitoring bmp 09/09/2024 DCed Lasix today as the creatinine went up 2.02 Appears to be euvolemic, can not give her any IV fluids at this time as she does have mild shortness of breath had an EF of 10%, reassess fluid status in a.m. and continue to monitor creatinine level Possible pneumonia Chest x-ray: hest x-ray: Patchy opacities in the right lung may reflect atelectasis/scarring versus pneumonia. Ceftriaxone azithromycin started, albuterol, DuoNeb started Methamphetamine abuse Substance abuse navigator Reviewed medications, she is not taking any home medications. Code Status: full DVT prophylaxis: On Heparin drip Analgesia/sedation: None Line/tube: Peripheral GI prophylaxis: Protonix Diet: Heart healthy, sodium restricted Prognosis: Guarded Disposition: Continue medical management. Eloisa Jackson IM Resident PGY2 Date of Service: Sep 09, 2024 Billing Provider: UMESH BRANHAM MD Common Visit Codes: 25726-ADHEDSONOP INP/OBS CARE(HIGH) ELOISA JACKSON, GOLDIE Sep 09, 2024 13:42 UMESH BRANHAM MD Sep 09, 2024 21:09
--- NOTE | 2024-09-09 15:29 | CONSULTATION ---
DATE OF CONSULTATION: 09/08/2024 DICTATING PHYSICIAN: STEFANI Morales MD CARDIOLOGY CONSULTATION IDENTIFICATION: The patient is a 59-year-old, postmenopausal, female with a history of chronic methamphetamines abuse and chronic history of smoking, COPD, prior history of CVA, who was admitted to [facility] for NSTEMI, left against AMA and then came back to the hospital with progressive increasing shortness of breath and then was transferred here to [facility]. The patient also was hospitalized at [facility] from 04/05/2024 to 04/07/2024. At that time, she has diagnosis of cardiomyopathy, CKD, CVA, bipolar disorder, and congestive heart failure. During that admission, the patient's echocardiogram on 04/05/2024 showed ejection fraction of 10% to 15% with trace AR, mild MR, and moderate TR. PA systolic pressure of 51 mmHg. During this admission, her methamphetamine was positive. During last hospitalization, the patient was primarily managed medically. He was put on aspirin, Plavix, high-dose statins, carvedilol, Jardiance, and started on Entresto. However, the patient has stopped most of those medications, and she lives alone. She has been on disability since her early age and just ambulates around her house. She reports dyspnea was going uphill, NYHA dyspnea class 2 to 3. No history of stent, palpitations, or syncopal episode. No history of congenital rheumatic heart disease. PAST MEDICAL HISTORY: * Methamphetamine-induced cardiomyopathy. * Chronic systolic heart failure. * Hypertension. * History of CVA. * Chronic kidney disease. * Bipolar disorder. * Followup PTSD. POST SURGICAL HISTORY: Hysterectomy and appendectomy. SOCIAL HISTORY: The patient lives alone. She has been smoking one pack per day from age 9. She uses occasional alcohol. No history of substance abuse. REVIEW OF SYSTEMS: HEENT: Wears reading glasses, not hearing impaired. RESPIRATORY: She has exertional shortness. MUSCULOSKELETAL: No arthralgia. CENTRAL NERVOUS SYSTEM: History of strokes present. PSYCHIATRIC: The patient is conscious, alert, oriented, and very anxious. PHYSICAL EXAMINATION: VITAL SIGNS: Temperature 97.4, pulse 69 per minute, blood pressure 104/54, 97% pulse ox on room air. NECK: Mild JVD present. Carotids are equally well felt. CARDIAC: Reveals regular rate and rhythm. S1 and S2 normal. No S3 or S4. LUNGS: Decreased breath sounds bibasilarly. ABDOMEN: Soft, bowel sounds present. EXTREMITIES: No edema, cyanosis, or clubbing. LABORATORY DATA: WBC 7.3, hemoglobin 14.3, hematocrit 42, and platelet count 484. Sodium 137, potassium 4.3, chloride 102, carbon dioxide 25, BUN 59, creatinine 1.66, proBNP more than 30,000. Labs from 09/08/2024, WBC 7.1, hemoglobin 13.4, hematocrit 39.5, platelet count 352. Sodium 135, potassium 3, chloride 104, carbon dioxide 21, BUN 33, creatinine 1.36, troponin was 876. DIAGNOSTIC DATA: Chest x-ray shows cardiomegaly with CHF. IMPRESSION AND PLAN: A 59-year-old, postmenopausal, female with: * Chronic methamphetamine abuse with methamphetamine complicated induced cardiomyopathy. Recommend GDMP therapy with carvedilol, losartan, Jardiance, and spironolactone. * Chronic systolic heart failure 1200 fluid restriction, low-salt diet. Titrate diuretics as required. The patient is counseled on CHF management. * Mildly elevated troponin related to probably methamphetamine abuse. Recommended continued medical therapy. * Hypertension. Continue medical therapy. * Other comorbidities include bipolar disorder, history of CVA, medical noncompliance, and social issues. Recommend followup with PMD licensed clinical social worker. * Moderate tricuspid regurgitation with 51 mmHg. * History of COPD. Counselled on smoking cessation. STEFANI Morales MD TID: [id number] RECEIPT: [id number] BC/TAD/AMA MTDD
[2024-09-10] VITALS (12 sets, daily range): BP systolic 115–130; BP diastolic 61–70; PULSE 61–84; RESP 12–23; TEMP 97.3–97.8; O2SAT 96–100
[2024-09-10] MEDS: acetaminophen 325mg tablet PO PRN (04:11)
[2024-09-10 06:21] LABS: BASOPHILS # (AUTO) 0.1 X10'3 (0-0.2); BASOPHILS % (AUTO) 1.1 % (0-1); EOSINOPHILS # (AUTO) 0.3 X10'3 (0-0.9); EOSINOPHILS % (AUTO) 3.6 % (0-6); HEMATOCRIT 35.7 % (35.0-45.0); HEMOGLOBIN 12.2 g/dl (12.0-16.0); LYMPHOCYTES # (AUTO) 1.7 X10'3 (1.1-4.8); MEAN CORPUSCULAR HEMOGLOBIN 29.6 PG (27.0-31.0); MEAN PLATELET VOLUME 8.2 FL (7.4-10.4); MONOCYTES # (AUTO) 0.6 X10'3 (0-0.9); NEUTROPHILS % (AUTO) 65.3 % (42-75); PLATELET COUNT 340 X10'3 (140-440); RED BLOOD COUNT 4.11 X10'6 (4.20-5.60); RED CELL DISTRIBUTION WIDTH 16.7 % (11.5-14.5); WHITE BLOOD COUNT 7.6 X10'3 (4.5-11.0)
[2024-09-10 06:38] LABS: ALANINE AMINOTRANSFERASE 29 U/L (12-78); ALBUMIN 2.7 G/DL (3.4-5.0); ALBUMIN/GLOBULIN RATIO 0.7 (1.1-1.5); ALKALINE PHOSPHATASE 74 IU/L (46-116); ANION GAP 12 (8-16); ASPARTATE AMINO TRANSFERASE 15 U/L (10-37); BILIRUBIN,TOTAL 0.3 MG/DL (0.1-1.0); BLOOD UREA NITROGEN 47 MG/DL (7-18); CALCIUM 8.7 MG/DL (8.5-10.1); CHLORIDE 105 MMOL/L (99-107); CREATININE 1.96 MG/DL (0.40-0.90); GLUCOSE 109 MG/DL (70-104); MAGNESIUM 1.9 MG/DL (1.5-2.4); POTASSIUM 4.6 MMOL/L (3.5-5.1); SODIUM 139 MMOL/L (135-145); TOTAL CARBON DIOXIDE 21.6 MMOL/L (24-32); TOTAL PROTEIN 6.5 G/DL (6.4-8.2); eCRCL 25 ML/MIN; eGFR 26 ML/MIN
[2024-09-10] MEDS ORDERED: IPRA3AMP9 NEB (09:05)
[2024-09-10] MEDS ORDERED: ALBU2.5V7 NEB (09:05)
[2024-09-10] MEDS ORDERED: EMPA10TA PO (09:05)
[2024-09-10] MEDS ORDERED: CARV6.253 PO (09:05)
[2024-09-10] MEDS ORDERED: CEFD300C3 PO (09:05)
[2024-09-10] MEDS ORDERED: CLOP75TA34 PO (09:05)
[2024-09-10] MEDS ORDERED: SACU1TAB PO (09:05)
[2024-09-10] MEDS ORDERED: ASPI-1071 PO (09:05)
[2024-09-10] MEDS ORDERED: FURO-150 PO (09:06)
[2024-09-10] MEDS: clopidogrel 75mg tablet PO SCH (09:09)
[2024-09-10] MEDS: aspirin 81mg, enteric-coated 1 TAB TABLET.DR PO SCH (09:09)
--- NOTE | 2024-09-10 13:41 | DISCHARGE SUMMARY-Residence ---
Discharge Summary Providers to CC Resident Creating Document: CHATO JACKSON RES ~ Discharge Summary Admission Diagnosis: NSTEMI, CHF Hospital Course DATE OF ADMISSION: 09/07/2024 DATE OF DISCHARGE: 09/10/2024 Hospital course same as mentioned discharge summary. Discharge Diagnosis\Comment: NSTEMI Active methamphetamine abuse CHF with reduced ejection fraction Acute on chronic kidney failure likely secondary to vasomotor nephropathy Possible pneumonia Methamphetamine abuse Operations\Procedures: None Consultants: Dr Morales Complications: None Condition on DC: Stable New Medications: Albuterol Sulfate (Albuterol Sulfate) 2.5 Mg/3 Ml Vial.neb 1 VIAL NEB Q2H PRN for wheezing, #1 INHALER 0 Refills Cefdinir* (Cefdinir*) 300 Mg Capsule 1 CAP PO Q12H for 5 Days, #10 CAP Furosemide (Lasix) 20 Mg Tablet 20 MG PO DAILY for 30 Days, #30 TAB Aspirin (Ecotrin*) 81 Mg Tablet.dr 1 TAB PO DAILY, #30 TAB.SR Carvedilol (Carvedilol) 6.25 Mg Tablet 6.25 MG PO BID for 30 Days, #60 TAB Clopidogrel Bisulfate (Clopidogrel) 75 Mg Tablet 75 MG PO DAILY, #30 TAB 1 Refill Do not stop medication unless instructed by prescriber. Empagliflozin (Jardiance) 10 Mg Tablet 10 MG PO DAILY, #30 TAB 1 Refill Ipratropium/Albuterol Sulfate (IPRAT-ALBUT 0.5-3(2.5) MG/3 ML nebule) 0.5 Mg-3 Mg (2.5 Mg Base)/3 Ml Ampul.neb 3 ML NEB Q4HRT, #1 INHALER Sacubitril/Valsartan (Entresto 24 mg-26 mg Tablet) 24 Mg-26 Mg Tablet 1 TABLET PO BID for 30 Days, #60 TAB Continued Medications: Atorvastatin Calcium (Atorvastatin Calcium) 40 Mg Tablet Home Med List (No Home Medications) Each Discharge Summary: As per HPI: 59 years old female with history of NSTEMI, CKD, CVA with left lower extremity deficit and slurred speech, bipolar disorder, heart failure with reduced ejection fraction 15%, methamphetamine abuse transferred from [place] to our hospital due to NSTEMI. Patient was admitted in [place] for NSTEMI and she left against medical advice as medical chart. Today patient visited [facility] for progressive shortness of breaths patient started about four days ago. Patient denied any chest pain chest compression profound sweating. As the medical chart she had low appetite and decreased p.o. intake Hospital course: On further evaluation EKG sinus rhythm with heart rate 89 multiple PVCs and left bundle-branch block. Troponins [id number]. Was started on the heparin drip times 48 hours. Chest x-ray showed patchy opacities in the right lung reflecting atelectasis versus pneumonia. She also has CHF with severely reduced EF 10-15% RVSP 51. Started GDM T Coreg 6.25 p.o. b.i.d. furosemide 20 p.o. daily Entresto 37240 tablet p.o. b.i.d. and Jardiance 10 p.o. daily. She was able to tolerate the above medications well. Recommended strict Is&Os and low-sodium diet. She had SHAUN which improved. Chest x-ray showed concerns for possible pneumonia and was started on empiric antibiotics. UTox positive for methamphetamine substance use navigator was consulted. Heparin drip was discontinued after 48 hours and she was started on aspirin Plavix and statin. Tape Sewing Machine Operator was consulted, recommended medical management. Recommended to be strictly compliant with medication and stopped using methamphetamines. Also given her breathing treatments with DuoNebs and albuterol. Her hospital course is uncomplicated she is hemodynamically stable on the day of discharge and her physical exam is as follows: General: Awake and Alert, cachectic, ill appearing, sleepy, mild distress. HEENT: Conjunctiva pink, Sclera clear, Mucus Membranes dry. Neck: Supple without masses and tenderness. Resp: Lungs clear to auscultation bilaterally. Heart: Regular Rate and rhythm, normal S1 and S2 Abdomen: Soft and non tender Extremities: No cyanosis,clubbing or edema. Skin: Warm and Dry. Neurological: No gross sensory or motor abnormalities. Discharge medications can be found above. Patient is being discharged with the advice to follow up with primary care within a week. Laboratory Tests Test 09/08/24 18:12 09/08/24 21:44 09/09/24 02:40 09/09/24 06:35 APTT (Heparin Protocol) 30 SECONDS 27 SECONDS Coagulation Comments Potassium Level 4.8 MMOL/L 4.7 MMOL/L Pro-B-Type Natriuretic Peptide > 62921 PG/ML White Blood Count 8.9 X10'3 Red Blood Count 4.57 X10'6 Hemoglobin 13.3 g/dl Hematocrit 40.1 % Mean Corpuscular Volume 87.7 FL Mean Corpuscular Hemoglobin 29.1 PG Mean Corpuscular Hemoglobin Concent 33.1 g/dL Red Cell Distribution Width 16.6 % Platelet Count 348 X10'3 Mean Platelet Volume 8.5 FL Neutrophils (%) (Auto) 62.6 % Lymphocytes (%) (Auto) 28.3 % Monocytes (%) (Auto) 5.9 % Eosinophils (%) (Auto) 1.9 % Basophils (%) (Auto) 1.3 % Neutrophils # (Auto) 5.6 X10'3 Lymphocytes # (Auto) 2.5 X10'3 Monocytes # (Auto) 0.5 X10'3 Eosinophils # (Auto) 0.2 X10'3 Basophils # (Auto) 0.1 X10'3 CBC Comment Sodium Level 139 MMOL/L Chloride Level 105 MMOL/L Carbon Dioxide Level 20.4 MMOL/L Anion Gap 14 Blood Urea Nitrogen 50 MG/DL Creatinine 2.02 MG/DL Estimated GFR/1.73 m2 25 ML/MIN BUN/Creatinine Ratio 24.8 Glucose Level 103 MG/DL Calcium Level 8.7 MG/DL Magnesium Level 2.1 MG/DL Total Bilirubin 0.5 MG/DL Aspartate Amino Transf (AST/SGOT) 22 U/L Alanine Aminotransferase (ALT/SGPT) 29 U/L Alkaline Phosphatase 87 IU/L Total Protein 7.1 G/DL Albumin 3.0 G/DL Globulin 4.1 G/DL Albumin/Globulin Ratio 0.7 Chemistry Comments Test 09/09/24 10:16 09/09/24 15:57 09/09/24 21:48 09/10/24 05:45 APTT (Heparin Protocol) 57 SECONDS 58 SECONDS 50 SECONDS Coagulation Comments White Blood Count 7.6 X10'3 Red Blood Count 4.11 X10'6 Hemoglobin 12.2 g/dl Hematocrit 35.7 % Mean Corpuscular Volume 87.0 FL Mean Corpuscular Hemoglobin 29.6 PG Mean Corpuscular Hemoglobin Concent 34.0 g/dL Red Cell Distribution Width 16.7 % Platelet Count 340 X10'3 Mean Platelet Volume 8.2 FL Neutrophils (%) (Auto) 65.3 % Lymphocytes (%) (Auto) 22.0 % Monocytes (%) (Auto) 8.0 % Eosinophils (%) (Auto) 3.6 % Basophils (%) (Auto) 1.1 % Neutrophils # (Auto) 5.0 X10'3 Lymphocytes # (Auto) 1.7 X10'3 Monocytes # (Auto) 0.6 X10'3 Eosinophils # (Auto) 0.3 X10'3 Basophils # (Auto) 0.1 X10'3 CBC Comment Sodium Level 139 MMOL/L Potassium Level 4.6 MMOL/L Chloride Level 105 MMOL/L Carbon Dioxide Level 21.6 MMOL/L Anion Gap 12 Blood Urea Nitrogen 47 MG/DL Creatinine 1.96 MG/DL Estimated GFR/1.73 m2 26 ML/MIN BUN/Creatinine Ratio 24.0 Glucose Level 109 MG/DL Calcium Level 8.7 MG/DL Magnesium Level 1.9 MG/DL Total Bilirubin 0.3 MG/DL Aspartate Amino Transf (AST/SGOT) 15 U/L Alanine Aminotransferase (ALT/SGPT) 29 U/L Alkaline Phosphatase 74 IU/L Total Protein 6.5 G/DL Albumin 2.7 G/DL Globulin 3.8 G/DL Albumin/Globulin Ratio 0.7 Chemistry Comments *Problems/Diagnosis: (1) NSTEMI (non-ST elevated myocardial infarction) Status: Acute Total Time Spent on D/C: > 30 Minutes Date of Service: Sep 10, 2024 Billing Provider: UMESH BRANHAM MD Common Visit Codes: 02710-EMS/OBS DISCH DAY >30min CHATO JACKSON RES Sep 10, 2024 13:41 UMESH BRANHAM MD Sep 12, 2024 12:00
--- NOTE | 2024-09-10 19:35 | PROGRESS NOTE ---
Progress Note Cardiology Providers to CC ~ Subjective Subjective Patient seen and examined this morning before discharge. Overall patient is feeling better with no chest pain. Improved shortness of breath. Objective Result Diagram: 09/10/24 0545 09/10/24 0545 Objective General: Normal body habitus, no acute distress, HEENT: Sclerae clear, PERRL, gums without lesions or bleeding, oropharynx clear without erythema or exudate. Neck: Supple without enlargement of the thyroid, or lymphadenopathy, Chest: Normal size and shape, no tenderness, nonlabored breathing, Breath sounds improved in bases Heart: Regular in rate and rhythm, S1 and S2 normal, no S3-S4 or murmurs. Abdomen: Soft, nontender, no organomegaly, bowel sounds present. Extremities: No edema cyanosis or clubbing. Coagulation Studies Laboratory Tests Test 09/07/24 20:22 09/09/24 21:48 Prothrombin Time 10.9 SECONDS (9.0-12.0) INR International Normalized Ratio 1.1 INR Activated Partial Thromboplast Time 27 SECONDS (22-32) APTT (Heparin Protocol) 50 SECONDS (45-60) Coagulation Comments Problem\Assessment\Plan Additional Plan 1. * Chronic methamphetamine abuse with methamphetamine complicated induced cardiomyopathy. Recommend GDMP therapy with carvedilol, losartan, Jardiance, and spironolactone. 2. * Chronic systolic heart failure, recommend 1200 cc fluid restriction, low- salt diet. Titrate diuretics as required. The patient is counseled on CHF management. 3. * Mildly elevated troponin related to probably methamphetamine abuse. Recommended continued medical therapy. 4. * Hypertension. Continue medical therapy. 4. * Other comorbidities include bipolar disorder, history of CVA, medical noncompliance, and social issues. Recommend followup with PMD elementary school social worker. CKD with BUN 47 creatinine 1.96. 6. * Moderate tricuspid regurgitation with 51 mmHg. * History of COPD. Counselled on smoking cessation. Recommend patient to follow up with PMD. Recheck echo in about 2-3 months. If patient is abstinent from methamphetamine use and her EF continues to be low, she may need further cardiac therapies patient was educated about this. MONTSE ISLAS MD Sep 10, 2024 19:35
[2024-09-15 05:13] LABS: BONE FRACTION: 42 % (14-68); INTESTINAL FRAC: 1 % (0-18); LIVER FRACTION: 57 % (18-85)
== END 2024-09-10 17:57 | disposition home or self-care (01) | DRG 190 ==
LOC: ER 20:10 → ED HOLD 22:26 → EDBEDREQ 22:50 → PCU 3S 23:30
PROVIDERS: ADMIT Internal Medicine Critical Care Medicine; ATTEND Internal Medicine
DX: I21.4 Non-ST elevation (NSTEMI) myocardial infarction (principal); N17.0 Acute kidney failure with tubular necrosis; I13.0 Hypertensive heart and chronic kidney disease with heart failure and stage 1 through stage 4 chronic kidney disease, or unspecified chronic kidney disease; J18.9 Pneumonia, unspecified organism; I42.7 Cardiomyopathy due to drug and external agent; I50.22 Chronic systolic (congestive) heart failure; I44.7 Left bundle-branch block, unspecified; J44.0 Chronic obstructive pulmonary disease with (acute) lower respiratory infection; F15.10 Other stimulant abuse, uncomplicated; F17.210 Nicotine dependence, cigarettes, uncomplicated; N18.9 Chronic kidney disease, unspecified; I49.3 Ventricular premature depolarization; I36.1 Nonrheumatic tricuspid (valve) insufficiency; F31.9 Bipolar disorder, unspecified; F43.10 Post-traumatic stress disorder, unspecified; T43.625A Adverse effect of amphetamines, initial encounter; Z79.899 Other long term (current) drug therapy; I69.328 Other speech and language deficits following cerebral infarction; I69.398 Other sequelae of cerebral infarction; Z90.710 Acquired absence of both cervix and uterus; Y92.89 Other specified places as the place of occurrence of the external cause
CPT/HCPCS: 36415; 71045; 80048; 80053; 80061; 80305; 81001; 83036; 83605; 83735; 83880; 84075; 84080; 84132; 84450; 84460; 84484; 85025; 85610; 85730; 87040; 87081; 93005; 94640; 94760; 96365; 99291; A6258; G0378; J0456; J0696; J1644; J1938; J7040

== ENCOUNTER 2024-12-26 15:30 | Inpatient (IN) | payer MEDICAID ==
[~2024-12-26] VITALS: Ht 170.2 cm; Wt 54.5 kg
[~2024-12-26 15:30] MED LIST changes: +ALBU2.5V7 NEB; +ASPI-1071 PO; -ASPI-1265 PO; -ATOR20TA66 PO; +ATOR40TA72; -CARV-50 PO; +CARV6.253 PO; +IPRA3AMP9 NEB; +NO HOME MEDS; -SPIR25TA5 PO
--- NOTE | 2024-12-26 15:38 | ELECTROCARDIOGRAPH REPORT ---
[facility] Test Date: 2024-12-26 Test Time: 15:36:18 Pat Name: JUNE MASSIEL Department: [facility]-ER Patient ID: [facility]-[id number] Room: Gender: F Rodent Control Worker: : 1965 Requested By: MARYJO ROSARIO Order Number: [id number] Reading MD: Measurements Intervals [place] Rate: 68 P: 74 SC: 168 QRS: -61 QRSD: 178 T: 90 QT: 527 QTc: 561 Interpretive Statements Sinus rhythm Left bundle branch block Please click the below link to view image of tracing.
[2024-12-26 15:59] LABS: MEAN PLATELET VOLUME 7.6 FL (7.4-10.4); RED CELL DISTRIBUTION WIDTH 17.2 % (11.5-14.5)
[2024-12-26 16:19] LABS: CREATININE 2.07 MG/DL (0.40-0.90); TOTAL CARBON DIOXIDE 26.5 MMOL/L (24-32); eCRCL 25 ML/MIN; eGFR 24 ML/MIN
[2024-12-26 16:46] LABS: PRO BRAIN NATRIURETIC PEPTIDE > 30000 PG/ML (0-125)
--- NOTE | 2024-12-26 16:54 | RADIOLOGY REPORT ---
CHEST RADIOGRAPH Indication: CP Technique: DI CHEST,SINGLE VIEW COMPARISON: None FINDINGS: 1 The cardiac silhouette is enlarged. The lungs demonstrate bilateral patchy airspace opacities. The pulmonary vasculature is prominent. Small left pleural effusion. There is no pneumothorax. IMPRESSION: Cardiomegaly with pulmonary vascular congestion and bilateral patchy airspace opacities. Small left pleural effusion.
--- NOTE | 2024-12-26 17:03 | Physician Documentation ---
History of Present Illness ~ Chief Complaint: See Chief Complaint Stated Complaint: NSTEMI Time Seen by MD: 16:58 Mode of Arrival: EMS HPI Patient presents to the emergency room as transfer from [facility] for NSTEMI. She is on heparin drip. She was seen yesterday at their facility where CTA was performed which was negative. Today she had positive troponins. Transferred here for further cardiologic workup. She does endorse occasional chest pain and shortness of breath. Medication Reconciliation Allergies: Coded Allergies: No Known Allergies (Unverified , 04/05/24) Scheduled Aspirin (Ecotrin*), 1 TAB PO DAILY Carvedilol (Carvedilol), 6.25 MG PO BID Clopidogrel Bisulfate (Clopidogrel), 75 MG PO DAILY Empagliflozin (Jardiance), 10 MG PO DAILY Furosemide (Lasix), 20 MG PO DAILY Ipratropium/Albuterol Sulfate (IPRAT-ALBUT 0.5-3(2.5) MG/3 ML nebule), 3 ML NEB Q4HRT Sacubitril/Valsartan (Entresto 24 mg-26 mg Tablet), 1 TABLET PO BID Scheduled PRN Albuterol Sulfate (Albuterol Sulfate), 1 VIAL NEB Q2H PRN for wheezing Miscellaneous Medications Atorvastatin Calcium (Atorvastatin Calcium), (Reported) Home Med List (No Home Medications), (Reported) Past Medical History Alcohol Use: None Drug Use: marijuana, methamphetamine Review of Systems ROS All review of systems negative except as per HPI Physical Exam Vital Signs: Temperature: 98.5, Source: Oral, Heart Rate: 70, Respiratory Rate: 18, BP: 130/81, Pulse Oximetry: 98, Weight: 54.500 Oxygen Flow Rate: 0 Physical Exam General: Patient is awake, alert, cooperative in no acute distress Head: Normocephalic and atraumatic. Eyes: Conjunctival normal. EOMI. PERRL. ENT: Mucous membranes moist. Neck: Supple, trachea is midline. Chest: Clear to auscultation bilaterally without rales, rhonchi, or wheezes. There is no accessory muscle use or retractions. Cardiac: RRR without murmurs, gallops, or rubs. Abd: Soft, nondistended, nontender, with normoactive bowel sounds. No guarding, rebound, or rigidity. Progress Results/Orders Results/Orders Vital Signs 12/26/24 12/26/24 12/26/24 15:32 15:57 16:51 Temp 98.5 Pulse 68 70 Resp 23 18 18 B/P (MAP) 126/82 130/81 (97) Pulse Ox 96 98 O2 Flow Rate 0 0 Laboratory Tests Test 12/26/24 15:46 White Blood Count 8.5 Red Blood Count 4.32 Hemoglobin 12.4 Hematocrit 36.9 Mean Corpuscular Volume 85.6 Mean Corpuscular Hemoglobin 28.8 Mean Corpuscular Hemoglobin Concent 33.7 Red Cell Distribution Width 17.2 H Platelet Count 375 Mean Platelet Volume 7.6 Neutrophils (%) (Auto) 60.1 Lymphocytes (%) (Auto) 28.0 Monocytes (%) (Auto) 8.2 Eosinophils (%) (Auto) 2.3 Basophils (%) (Auto) 1.4 H Neutrophils # (Auto) 5.1 Lymphocytes # (Auto) 2.4 Monocytes # (Auto) 0.7 Eosinophils # (Auto) 0.2 Basophils # (Auto) 0.1 CBC Comment Sodium Level 139 Potassium Level 4.2 Chloride Level 104 Carbon Dioxide Level 26.5 Anion Gap 9 Blood Urea Nitrogen 61 H Creatinine 2.07 H Estimated GFR/1.73 m2 24 BUN/Creatinine Ratio 29.5 H Glucose Level 103 Calcium Level 8.6 Troponin I High Sensitivity 1173 *H Pro-B-Type Natriuretic Peptide > 31510 H Albumin 3.1 L Chemistry Comments EKG/XRAY/CT/US/VASC/MRI EKG : Additional Comment EKG interpreted by myself shows time of 1536, rate 68, sinus rhythm, left axis deviation, left bundle-branch block, nonspecific ST-T changes Chest X-Ray : Additional Comments Exam: CHEST,SINGLE VIEW CHEST RADIOGRAPH Indication: CP Technique: DI CHEST,SINGLE VIEW COMPARISON: None FINDINGS: 1 The cardiac silhouette is enlarged. The lungs demonstrate bilateral patchy airspace opacities. The pulmonary vasculature is prominent. Small left pleural effusion. There is no pneumothorax. IMPRESSION: Cardiomegaly with pulmonary vascular congestion and bilateral patchy airspace opacities. Small left pleural effusion. Medical Decision Making Additional info obtained from: old records Findings Patient presents to the emergency room as a transfer for NSTEMI from [facility] along with likely CHF exacerbation on heparin. We will admit for further investigation. Denies current chest pain only asking for food. Heart Score: 4 Differential Dx:Considerations: Include: angina, aortic dissection, chest wall pain, cholelithiasis, CHF, costochondritis, esophageal reflux/spasm, gastritis, herpes zoster, myocardial infarction, pericarditis, pleuritis, pancreatitis, pneumonia, pneumothorax, pulmonary embolus, other Departure Admitted to Inpatient Unit: yes, to hospitalist Impression: Primary Impression: NSTEMI (non-ST elevated myocardial infarction) Additional Impressions: Methamphetamine abuse CHF exacerbation Condition: Guarded Referrals: NO PRIMARY CARE PROVIDER (PCP) Critical Care Note Total Time (mins): 30 Critical Care Note The very real possibility of a deterioration of this patient's condition required the highest level of my preparedness for sudden, emergent intervention. I provided critical care services, which included medication orders, frequent reevaluations of the patient's condition and response to treatment, ordering and reviewing test results, and discussing the case with various consultants. Excludes time spent performing separately billable procedures. The critical care time associated with the care of the patient was 30 minutes not counting procedures Signature Scribe Signature: No scribe Attestation: The note accurately reflects work and decisions made by me.Barrie De La Fuente MD 12/26/24 17:13 BARRIE DE LA FUENTE MD Dec 26, 2024 17:03
[2024-12-26] MEDS ORDERED: magnesium Cl slow-release 64mg tablet PO PRN (17:30)
[2024-12-26] MEDS ORDERED: magnesium sulf-water 2g/50mL 50 ML IV PRN (17:30)
[2024-12-26] MEDS ORDERED: magnesium sulf-water 4G/100mL 100 ML IV PRN (17:30)
[2024-12-26] MEDS ORDERED: mag hydrox/Alum hydrox/simeth 30ml oral suspension PO PRN (17:30)
[2024-12-26] MEDS ORDERED: potassium Cl 40MEQ/1/2NS 520ml 520 ML IV PRN (17:30)
[2024-12-26] MEDS ORDERED: magnesium hydroxide 30ml (MOM) UD suspension PO PRN (17:30)
[2024-12-26] MEDS ORDERED: potassium Cl 20 mEq SR tablet PO PRN ×2 (17:30)
[2024-12-26] MEDS: K and/or MAG REPLACEMENT MC SCH (18:01)
[2024-12-26] MEDS: PERFLUTREN PROTEIN-A MICROSPHR (Optison) 0.22 MG/ML 3ML VIAL IV ONE (18:01)
[2024-12-26] MEDS: aspirin 81mg, enteric-coated 1 TAB TABLET.DR PO SCH (18:09)
--- NOTE | 2024-12-26 18:13 | HISTORY AND PHYSICAL-Residence ---
History & Physical Providers to CC Resident Creating Document: GARRY ZAFAR, RES ~ History of Present Illness Reason for Admit\Complaint: NSTEMI,SHAUN,CHF History of Present Illness This is 59 years old female with a history of methamphetamine use, congestive heart failure with reduced ejection, COPD, chronic kidney disease stage 4, hypertension she was transferred from [facility] for cardiac evaluation in view of her elevated troponin at that center, patient endorses severe shortness of breath at rest from past 3 days associated orthopnea and PND additionally she mentioned nausea and back muscle aches at thoracic level on right side. Patient denies chest pain, palpitations, syncope, no history of recent weight gain, leg swelling, fever, cough or hemoptysis Patient has a history of congestive heart failure with reduced ejection fracture of 10% in March, she is currently on Entresto, Jardiance, carvedilol at home Allergies: Coded Allergies: No Known Allergies (Unverified , 04/05/24) Home Medications Home Medications Active Lasix (Furosemide) 20 Mg Tablet 20 Mg PO DAILY 30 Days Albuterol Sulfate (Albuterol) 2.5 Mg/3 Ml Vial.neb 1 Vial NEB Q2H PRN Jardiance (Empagliflozin) 10 Mg Tablet 10 Mg PO DAILY Ecotrin* (Aspirin) 81 Mg Tablet.dr 1 Tab PO DAILY Entresto 24 mg-26 mg Tablet (Sacubitril/Valsartan) 24 Mg-26 Mg Tablet 1 Tablet PO BID 30 Days Carvedilol 6.25 Mg Tablet 6.25 Mg PO BID 30 Days Clopidogrel (Clopidogrel Bisulfate) 75 Mg Tablet 75 Mg PO DAILY Do not stop medication unless instructed by prescriber. IPRAT-ALBUT 0.5-3(2.5) MG/3 ML nebule (Ipratropium/Albuterol Sulfate) 0.5 Mg-3 Mg (2.5 Mg Base)/3 Ml Ampul.neb 3 Ml NEB Q4HRT Reported Atorvastatin Calcium 40 Mg Tablet No Home Medications (Home Med List) Each Past Medical History Past Medical History COPD Chronic kidney disease Congestive heart failure Hypertension Past Surgical History Surgical History Comment Hysterectomy Cholecystectomy Tonsillectomy Past Social History Social History Comment Patient has a primary care physician in [place] She does not have a conche loader and unloader or audiology technician She lives alone in her trailer She currently ambulates sometimes with wheelchair and sometimes with a walker She is a known alcoholic She smokes 1 pack of cigarettes since 53 years She smokes marijuana, she uses methamphetamine Occupation disabled Smoking: Cigarettes Alcohol Use: None Drug Use: Marijuana, Methamphetamine ROS Constitutional: Reports: no symptoms reported Eyes: Reports: no symptoms reported ENT: Reports: no symptoms reported Respiratory: Reports: SOB at rest Respiratory Patient reports shortness of breast at rest, orthopnea, PND Cardiovascular: Reports: no symptoms reported Gastrointestinal: Reports: nausea Genitourinary: Reports: no symptoms reported Female Genitalia: Reports: no reported symptoms Neurological: Reports: no symptoms reported Musculoskeletal: Reports: muscle pain Musculoskeletal Patient reports 6 out of 10 pinching type of pain in her paraspinal muscle at right thoracic level, no midline spine tenderness Allergic/Immunologic: Reports: no symptoms reported Hematologic/Lymphatic: Reports: no symptoms reported Endocrine: Reports: no symptoms reported Psychiatric: Reports: no symptoms reported Exam Vitals: Vital Signs Date Time Temp Pulse Resp B/P (MAP) Pulse Ox O2 Delivery O2 Flow Rate FiO2 12/26/24 16:51 70 18 130/81 (97) 98 0 12/26/24 15:32 98.5 General: GENERAL: Awake, alert, oriented x4 HEENT : Normocephalic, atraumatic, pupils equal and reactive to light, extraocular movements intact, no scleral icterus or conjunctival pallor, nasal mucosa is moist, oral mucosa moist NECK: neck is supple, trachea midline, no lymphadenopathy, no thyromegaly, no JV distention RESPIRATORY: Chest expansion equal bilaterally, bilateral crackles are heard on auscultation, no wheezes, or rhonchi. No use of accessory muscles, no tenderness on palpation. CARDIOVASCULAR: S1 and S2 heard, S3 is heard, no murmurs, no rubs, ABDOMEN: Soft, nontender, nondistended, bowel sounds present and normoactive. No organomegaly, no palpable mass, no rebound or guarding NEUROLOGICAL: Alert, oriented, normal memory, speech is normal Cranial nerves II-XII- intact Motor strength 3/5 in left upper and lower extremity vs 4/5 in right upper and lower extremity Sensation-intact in all extremities Reflexes +2 and symmetrical Coordination is intact EXTREMITIES: No Edema, peripheral pulses felt, no deformities Psychiatric:Appropriate mood and affect,No hallucinations or suicidal ideation Diagnostic Data Last Recorded Lab Results: 12/26/24 1546 12/26/24 1546 Advance Care Planning Advanced Care plannin - 30 Minutes Additional Plan 59 years old female with past medical history of methamphetamine use he is currently evaluated for NSTEMI NSTEMI Patient denies any chest, she reported only back pain and shortness of breaths- she was transferred from the [facility] for cardiac evaluation Troponins are trending up [id number] Patient complains only back pain-aortic dissection he has not ruled, CTA is contraindicate in view of bad kidneys, will follow echocardiogram and patient vitals are stable Initial EKG rules out ST-elevation Patient is currently on heparin drip We started on aspirin 81 mg p.o. daily, atorvastatin 40 mg p.o. daily, sublingual nitroglycerin p.r.n., morphine for pain relief, carvedilol 3.25 mg p.o. b.i.d. We consulted conche loader and unloader Dr. England, he refused cardiac catheterization in view of patient methamphetamine use history and heart failure of reduced with ejection fraction of 10% Continue monitoring the patient in PCU with telemetry Congestive heart failure with ejection fraction of 10-15 %(on 04/09) likely due to methamphetamine use Patient reports severe shortness of breath at rest, orthopnea, PND Echocardiogram on 04/09 shows ejection fraction of 10-15% Chest x-ray shows pulmonary congestion and bilateral patchy infiltrates Patient is started on IV Lasix 20 mg b.i.d. Follow up with the echocardiogram Held home medications in view of declining kidney function Acute kidney injury on CKD stage IV Patient denies any dysuria, hematuria, oliguria Her BUN is 61, creatinine-2.07, EGFR 24 Follow up with spot urine sodium, potassium, urea, osmolality In view of patient elevated proBNP with history of congestive heart failure we are currently not giving any IV fluids, patient is started on IV Lasix 20 mg IV daily with strict input and output monitoring Avoid nephrotoxic drugs COPD Patient has a history of COPD, she complains of shortness of breath Currently on room air Started on DuoNeb q.4h , albuterol q.2h p.r.n., Solu-Medrol 40 mg IV b.i.d. Ordered incentive spirometry Hypertension Patient has a history of hypertension, vitals are stable Started on carvedilol 3.25 mg p.o. b.i.d. History of methamphetamine use Substance navigator consulted, social security assessor consulted Code Status: Full DVT prophylaxis: Heparin drip Analgesia/Sedation: Morphine Line/tube: Peripheral Nutrition: Renal diet PT: Order Prognosis: Guarded Disposition: Patient will be monitored in PCU with 24 hours telemetry, follow up with the echocardiogram Garry Zafar PGY1-Internal Medicine Resident Date of Service: Dec 26, 2024 Billing Provider: SAMEERA RUVALCABA MD, SATISH, RES Dec 26, 2024 18:13
[2024-12-26] MEDS: HEPARIN DRIP-CARDIAC**PHARMACIST-TO-DOSE IV ONE (18:15)
[2024-12-26] MEDS ORDERED: morphine 4 MG/ML inj SYRINge IV PRN (18:38)
[2024-12-26] MEDS: HEPARIN DRIP INITAL BOLUS --- DO NOT GIVE/ORDER MC ONE (19:00)
[2024-12-26] MEDS: MESSAGE TO NURSING IV ONE ×2 (19:15→21:08)
[2024-12-26] MEDS ORDERED: albuterol 2.5 MG/3 ML nebule NEB PRN (19:35)
[2024-12-26 19:38] LABS: APTT 25 SECONDS (22-32); INR 1.1 INR
[2024-12-26] MEDS: heparin 25,000 UNIT/250ml bag 250 ML IV PRN (19:58)
[2024-12-26] MEDS: heparin 10,000 units/1 ML INJ IV PRN (20:37)
[2024-12-26] MEDS: ipratropium/albuterol 3ml nebule NEB SCH (21:13)
[2024-12-26 21:15] VITALS: PULSE 69; RESP 16; O2SAT 97
[2024-12-26] MEDS: docusate sod 100mg capsule PO SCH (21:15)
[2024-12-26] MEDS: methylPREDNISolone sod succ/PF 40mg inj. IV SCH (21:15)
[2024-12-26 21:21] VITALS: PULSE 69; RESP 16
[2024-12-26 23:03] VITALS: BP 132/72; PULSE 67; RESP 12; TEMP 98.8; O2SAT 98
[2024-12-27] VITALS (17 sets, daily range): BP systolic 127–158; BP diastolic 72–88; PULSE 52–86; RESP 12–22; TEMP 96.2–98.6; O2SAT 94–98
[2024-12-27] MEDS: MESSAGE TO NURSING IV ONE ×2 (03:43→19:05)
[2024-12-27] MEDS: nicotine 14mg patch - 24hr TD SCH (08:05)
[2024-12-27 09:38] LABS: LEUKOCYTE ESTERASE ,URINE NEGATIVE (Neg); NITRITES, URINE NEGATIVE (Neg); OCCULT BLOOD,URINE TRACE-INTACT (Neg)
[2024-12-27 09:42] LABS: CREATININE,URINE RANDOM 45.0 MG/DL; TOTAL PROTEIN,URINE RANDOM 24.3 MG/DL
[2024-12-27 09:47] LABS: URINE AMPHETAMINE SCREEN POSITIVE (Neg); URINE BARBITUATE SCREEN NEGATIVE (Neg); URINE BENZODIAZEPINES SCREEN NEGATIVE (Neg); URINE CANNABINOID SCREEN POSITIVE (Neg); URINE COCAINE SCREEN NEGATIVE (Neg); URINE METHADONE SCREEN NEGATIVE (Neg); URINE OPIATE SCREEN NEGATIVE (Neg); URINE PHENCYCLIDINE SCREEN NEGATIVE (Neg)
[2024-12-27 09:51] LABS: UA COLLECTION TYPE CLN CATCH MIDSTREAM
[2024-12-27 09:53] LABS: SQUAMOUS EPITHELIAL CELL,UR FEW /LPF (FEW); WBC CLUMPS,URINE FEW /HPF (NEGATIVE)
[2024-12-27 10:02] LABS: OSMOLALITY UA 413.0 MOSM/K (50-1400)
[2024-12-27 10:17] LABS: UA EOSINOPHILS NO EOS /HPF
--- NOTE | 2024-12-27 10:35 | CONSULTATION REPORT ---
History of Present Illness Providers to CC CC: JAILENE ENGLAND MD ~ Reason for Admit\Admit Dx: Cardiology consultation History of Present Illness Patient with past medical history is significant for heart failure with reduced ejection fraction, CVA, hypertension, persistent methamphetamine abuse presents secondary to severe shortness for breath. She has been out of her medications for the past three weeks. She states that she is unable to get to the pharmacy to get her medications. She has not [facility] worker but she states her worker does not fruit picker machine operator her medications for her. Last echocardiogram was performed March 2024 which revealed dilated LV with LVEF of 10-15%. RV severely dilated with reduced function. RVSP 51 mm of mercury. Moderate TR. Allergies: Coded Allergies: No Known Allergies (Unverified , 04/05/24) Home Medications Home Medications Active Lasix (Furosemide) 20 Mg Tablet 20 Mg PO DAILY 30 Days Albuterol Sulfate (Albuterol) 2.5 Mg/3 Ml Vial.neb 1 Vial NEB Q2H PRN Jardiance (Empagliflozin) 10 Mg Tablet 10 Mg PO DAILY Ecotrin* (Aspirin) 81 Mg Tablet.dr 1 Tab PO DAILY Entresto 24 mg-26 mg Tablet (Sacubitril/Valsartan) 24 Mg-26 Mg Tablet 1 Tablet PO BID 30 Days Carvedilol 6.25 Mg Tablet 6.25 Mg PO BID 30 Days Clopidogrel (Clopidogrel Bisulfate) 75 Mg Tablet 75 Mg PO DAILY Do not stop medication unless instructed by prescriber. IPRAT-ALBUT 0.5-3(2.5) MG/3 ML nebule (Ipratropium/Albuterol Sulfate) 0.5 Mg-3 Mg (2.5 Mg Base)/3 Ml Ampul.neb 3 Ml NEB Q4HRT Reported Atorvastatin Calcium 40 Mg Tablet No Home Medications (Home Med List) Each Past Medical History Medical History Comment Heart failure with reduced ejection fraction Tobacco use disorder CVA Hypertension Methamphetamine abuse Chronic kidney disease stage 3 Bipolar disorder PTSD Past Surgical History Surgical History Comment Hysterectomy Appendectomy Past Family History Family History: FH: anemia MOTHER (Anemia, [place] Problems, Liver Problems, HTN), Age: 84 FH: hypertension MOTHER (Anemia, [place] Problems, Liver Problems, HTN), Age: 84 Past Social History Social History Comment Current everyday methamphetamine use. Smokes tobacco daily. Denies alcohol use. Physical Exam Last Vital Signs Recorded: RN Vital Signs have been reviewed: Yes, Temperature: 97.6, Source: Oral, Heart Rate: 67, Respiratory Rate: 16, BP: 137/72, Pulse Oximetry: 96, Weight: 54.500 Physical Exam General: Awake, alert, oriented. No apparent distress Neck: Supple. Normal range of motion. No JVD Respiratory: Bibasilar crackles. No respiratory distress. On room air. Speaking in full sentences. Chest: Normal shape and size. No accessory muscle use. Cardiovascular: Regular rate and rhythm. S1-S2. No murmur, gallop, rub. Gastrointestinal: Abdomen is soft. Nontender to palpation. Bowel sounds present. Extremities: No lower extremity edema, cyanosis or clubbing. Neurologic: Alert and oriented x4. Nonfocal Psychiatric: Normal mood and affect. Skin: Normal color. Warm and dry. Review of Systems ROS Review of systems negative except documented in HPI. Results Diagram Lab Result Diagram: 12/26/24 1546 12/26/24 1546 Assessment/Plan Additional Plan Patient presented with increasing shortness a breath and found to have an NSTEMI. Transferred for higher level of care. The following is her problem list: NSTEMI In the setting of active methamphetamine use. May have chronic troponin leak as well given her troponins are similar to what they were in March. --may continue heparin for 48 hours --recommend Plavix, aspirin, statin, beta-royer. Heart failure with reduced ejection fraction acute on chronic She has been out of her medications for the past three weeks. --resume guideline directed medical therapy. Chronic kidney disease --recommend monitoring Methamphetamine use disorder --encouraged to quit Tobacco use disorder --encouraged to quit Case discussed with Dr. Delicia England who is in agreement with medical management. She will need outpatient follow up with primary care provider and referral to outpatient wholesale account manager. Supervising MD Supervising Physician: ANNA Bear NP Dec 27, 2024 10:35
[2024-12-27 10:37] LABS: MEAN PLATELET VOLUME 7.9 FL (7.4-10.4); RED CELL DISTRIBUTION WIDTH 16.9 % (11.5-14.5)
[2024-12-27 11:00] LABS: CREATININE 1.91 MG/DL (0.40-0.90); TOTAL CARBON DIOXIDE 23.1 MMOL/L (24-32); eCRCL 27 ML/MIN; eGFR 27 ML/MIN
--- NOTE | 2024-12-27 14:05 | PROGRESS NOTE- Residence ---
Progress Note - Resident Providers to CC Resident Creating Document: KRISTAL ZAFAR RES ~ Antibiotic Timeout Antibiotic Ordered?: No Subjective Patient was examined at bedside, she reports overall improvement in her shortness of breath and denies any acute symptoms Objective Vital Signs Date Time Temp Pulse Resp B/P (MAP) Pulse Ox O2 Delivery O2 Flow Rate FiO2 12/27/24 11:00 96.2 74 21 127/88 (101) 95 Room Air 12/27/24 08:45 0.0 21 Result Diagram: 12/27/2494312/27/2444 GENERAL: Awake, alert, oriented x4 HEENT : Normocephalic, atraumatic, pupils equal and reactive to light, extraocular movements intact, no scleral icterus or conjunctival pallor, nasal mucosa is moist, oral mucosa moist NECK: neck is supple, trachea midline, no lymphadenopathy, no thyromegaly, no JV distention RESPIRATORY: Chest expansion equal bilaterally, bilateral crackles are heard on auscultation, no wheezes, or rhonchi. No use of accessory muscles, no tenderness on palpation. CARDIOVASCULAR: S1 and S2 heard, S3 is heard, no murmurs, no rubs, ABDOMEN: Soft, nontender, nondistended, bowel sounds present and normoactive. No organomegaly, no palpable mass, no rebound or guarding NEUROLOGICAL: Alert, oriented, normal memory, speech is normal Cranial nerves II-XII- intact Motor strength 3/5 in left upper and lower extremity vs 4/5 in right upper and lower extremity Sensation-intact in all extremities Reflexes +2 and symmetrical Coordination is intact EXTREMITIES: No Edema, peripheral pulses felt, no deformities Psychiatric:Appropriate mood and affect,No hallucinations or suicidal ideation Coagulation Studies Laboratory Tests Test 12/26/24 19:10 12/27/24 09:44 Prothrombin Time 10.9 SECONDS (9.0-12.0) INR International Normalized Ratio 1.1 INR Activated Partial Thromboplast Time 25 SECONDS (22-32) APTT (Heparin Protocol) 61 SECONDS (45-60) H Coagulation Comments Advance Care Planning Advanced Care plannin - 30 Minutes Assessment Assessment 59 years old female with past medical history of methamphetamine use he is currently evaluated for NSTEMI Plan Plan NSTEMI marc due type 2 NM Patient has a history of elevated troponin levels Patient was transferred from the [facility] for cardiac evaluation Troponins are trending up [id number]-elevation Echocardiogram showed-LVEF 10-15%, RVSP 30 mm, Patient is currently on heparin drip Cardiology Dr. England recommended continuation of heparin drip for 48 hours, recommended to start Plavix, aspirin, statin, beta-royer Continue aspirin 81 mg p.o. daily, atorvastatin 40 mg p.o. daily, sublingual nitroglycerin p.r.n., morphine for pain relief, carvedilol 3.25 mg p.o. b.i.d. beta-royer Continue monitoring the patient in PCU with telemetry Congestive heart failure with ejection fraction of 10-15 % likely due to methamphetamine use Patient reports severe shortness of breath at rest, orthopnea, PND Echocardiogram on 04/09 shows ejection fraction of 10-15% Chest x-ray shows pulmonary congestion and bilateral patchy infiltrates echocardiogram-LVEF 10-15%, RVSP-30 mm Hg, tricuspid insufficiency, mitral regurgitation Continue IV Lasix 20 mg b.i.d. and carvedilol 3.25 mg p.o. b.i.d. Requested case finisher for [employer] Held home medications in view of declining kidney function Acute kidney injury on CKD stage IV marc due to cardiorenal syndrome Patient denies any dysuria, hematuria, oliguria Her BUN is 63, creatinine-1.91, EGFR 27-improving Follow up with spot urine sodium, potassium, urea, osmolality In view of patient elevated proBNP with history of congestive heart failure we are currently not giving any IV fluids, patient is started on IV Lasix 20 mg IV daily with strict input and output monitoring Avoid nephrotoxic drugs COPD Patient has a history of COPD, she complains of shortness of breath Currently on room air Continue DuoNeb q.4h , albuterol q.2h p.r.n., Solu-Medrol 40 mg IV b.i.d. and incentive spirometry Hypertension Patient has a history of hypertension, vitals are stable Started on carvedilol 3.25 mg p.o. b.i.d. History of methamphetamine use Substance navigator consulted, social media marketer consulted Code Status: Full DVT prophylaxis: Heparin drip Analgesia/Sedation: Morphine Line/tube: Peripheral Nutrition: Renal diet PT: Order Prognosis: Guarded Disposition: Patient will be monitored in PCU with 24 hours telemetry, follow up with the echocardiogram. tree surgeon was notified about patient condition and requested life wesly Zafar PGY1-Internal Medicine Resident Date of Service: Dec 27, 2024 Billing Provider: SAMEERA RUVALCABA MD, SATISH, RES Dec 27, 2024 14:04
--- NOTE | 2024-12-27 18:52 | CARDIOLOGY REPORT ---
APPROVED REPORT EXAM: Comprehensive 2D, Doppler, and color-flow Echocardiogram. Patient Location: 3026 [address] Blood Pressure: 127/88 mmHg Heart Rate: 68 bpm Rhythm: Sinus with LBBB Indications Coronary Artery Disease NSTEMI Elevated Troponins (1173, 1240, 1252) Elevated ProBNP (>88071) Congestive Heart Failure Meth Use Disorder Acid Splicer: Carlyn England MD Previous echo: 04/05/2024 [facility] EF: 10-15%, Dilated LV, mld LA, mod TR, mild MR 2D Dimensions RVDd 3.4 cm LA Diam 4.2 cm IVSd 1.3 (0.7-1.1cm) LVDd 6.5 cm PWd 1.3 (0.7-1.1cm) IVSs 1.3 (0.8-1.2cm) RA Minor 3.5 cm LVDs 6.2 (2.5-4.0cm) PWs 1.4 (0.8-1.2cm) LVOT Diameter 1.89 (1.8-2.4cm) LVEF(%) 12.0 (>50%) IVC 16.36 mm FS (%) 5.5 % SV 26.1 ml CO 2.0 L/min M-Mode Dimensions MV EPSS 2.3 (<0.5cm) Aortic Valve AoV Peak Harlan. 114.1 cm/s AoV VTI 19.9 cm AO Peak GR. 5.2 mmHg AO Mean GR. 3 mmHg LVOT VTI 17.59 cm LVOT Peak Harlan. 100.3 cm/s TYRESE(VTI)/BSA 2.48 cm2/m2 TYRESE (VTI) 2.48 cm2 AV DI 0.88 % Mitral Valve MV E Velocity 92.9 cm/s MV Peak Gr. 3 mmHg MV DECEL TIME 160 ms MV A Velocity 61.8 cm/s MV PHT 60 ms E/A Ratio 1.5 MVA (PHT) 3.67 cm2 MV VMax 91.9 cm/s Tricuspid Valve TR P. Velocity 226 cm/s RAP ESTIMATE 10 mmHg TR Peak Gr. 20 mmHg RVSP 30 mmHg LEFT VENTRICLE The LV is dilated in size with mild concentric hypertrophy. Overall systolic function is severely reduced. Overall LVEF is 10- 15%. RIGHT VENTRICLE Right ventricle is mildly dilated with reduced function. Estimated PA systolic pressure is 30 mmHg. ATRIA Left atrium is mildly dilated. AORTIC VALVE Trileaflet AV appears sclerotic without stenosis. Trace insufficiency. MITRAL VALVE Mild MV annular calcification without stenosis. Mild regurgitation. TRICUSPID VALVE TV appears structurally normal with mild regurgitation. PULMONIC VALVE Normal PV without stenosis, physiologic insufficiency. GREAT VESSELS The aortic root is normal in size. IVC is normal in size and collapses greater than 50% with inspiration. PERICARDIUM Normal pericardium. No pericardial effusion seen. Other Information Study Quality: Adequate Conclusion The LV is dilated in size with mild concentric hypertrophy. Overall systolic function is severely reduced. Overall LVEF is 10- 15%. Right ventricle is mildly dilated with reduced function. Estimated PA systolic pressure is 30 mmHg. Left atrium is mildly dilated. Trileaflet AV appears sclerotic without stenosis. Trace insufficiency. Mild MV annular calcification without stenosis. Mild regurgitation. TV appears structurally normal with mild regurgitation. Normal pericardium. No pericardial effusion seen.
[2024-12-27] MEDS: HYDROcodone/acetaminophen 5mg/325mg tablet PO ONE (19:47)
[2024-12-28] VITALS (21 sets, daily range): BP systolic 137–172; BP diastolic 74–100; PULSE 71–88; RESP 10–22; TEMP 97.9–99.3; O2SAT 95–99
[2024-12-28 02:12] LABS: CREATININE 1.99 MG/DL (0.40-0.90); MEAN PLATELET VOLUME 7.7 FL (7.4-10.4); RED CELL DISTRIBUTION WIDTH 16.9 % (11.5-14.5); TOTAL CARBON DIOXIDE 26.4 MMOL/L (24-32); eCRCL 26 ML/MIN; eGFR 25 ML/MIN
[2024-12-28] MEDS: MESSAGE TO NURSING IV ONE ×2 (02:33→10:55)
[2024-12-28] MEDS ORDERED: diazepam inj 5 MG/ML inj. IV PRN (10:25)
[2024-12-28] MEDS: EMPAGLIFLOZIN 10 MG TABLET PO SCH (11:43)
[2024-12-28] MEDS: multivitamins, therapeutics tablet PO SCH (11:43)
[2024-12-28] MEDS: folic acid 1mg/0.2ml inj IV SCH (11:44)
[2024-12-28] MEDS: azithromycin/NS 500mg/250ml 250 ML IV ONE (11:44)
[2024-12-28] MEDS: CefTRIAXone/D5W-Rocephin 1gm 50 ML IV SCH (13:33)
[2024-12-28] MEDS: ondansetron/PF 4mg/2ml inj IV PRN (13:33)
[2024-12-28] MEDS: thiamine 100mg/ml 2ml inj. IV SCH (15:30)
[2024-12-28] MEDS: morphine 4 MG/ML inj SYRINge IV PRN (15:40)
--- NOTE | 2024-12-28 17:57 | PROGRESS NOTE- Residence ---
Progress Note - Resident Providers to CC Resident Creating Document: KRISTAL ZAFAR RES ~ Antibiotic Timeout Antibiotic Ordered?: Yes Subjective Patient was examined at bedside, no acute overnight events reported, patient reports overall improvement in her symptoms Objective Vital Signs Date Time Temp Pulse Resp B/P (MAP) Pulse Ox O2 Delivery O2 Flow Rate FiO2 12/28/24 15:40 20 12/28/24 15:39 75 Room Air 0.0 21 12/28/24 15:34 99 12/28/24 11:00 97.9 148/80 (102) Result Diagram: 12/28/247 12/28/24146 GENERAL: Awake, alert, oriented x4 HEENT : Normocephalic, atraumatic, pupils equal and reactive to light, extraocular movements intact, no scleral icterus or conjunctival pallor, nasal mucosa is moist, oral mucosa moist NECK: neck is supple, trachea midline, no lymphadenopathy, no thyromegaly, no JV distention RESPIRATORY: Chest expansion equal bilaterally, bilateral crackles are heard on auscultation, no wheezes, or rhonchi. No use of accessory muscles, no tenderness on palpation. CARDIOVASCULAR: S1 and S2 heard, S3 is heard, no murmurs, no rubs, ABDOMEN: Soft, nontender, nondistended, bowel sounds present and normoactive. No organomegaly, no palpable mass, no rebound or guarding NEUROLOGICAL: Alert, oriented, normal memory, speech is normal Cranial nerves II-XII- intact Motor strength 3/5 in left upper and lower extremity vs 4/5 in right upper and lower extremity Sensation-intact in all extremities Reflexes +2 and symmetrical Coordination is intact EXTREMITIES: No Edema, peripheral pulses felt, no deformities Psychiatric:Appropriate mood and affect,No hallucinations or suicidal ideation Coagulation Studies Laboratory Tests Test 12/26/24 19:10 12/28/24 17:10 Prothrombin Time 10.9 SECONDS (9.0-12.0) INR International Normalized Ratio 1.1 INR Activated Partial Thromboplast Time 25 SECONDS (22-32) Coagulation Comments Advance Care Planning Advanced Care plannin - 30 Minutes Assessment Assessment 59 years old female with past medical history of methamphetamine use he is currently evaluated for NSTEMI Plan Plan NSTEMI marc due type 2 NC Patient has a history of elevated troponin levels Patient was transferred from the [facility] for cardiac evaluation Troponins are trending up [id number] rules out ST-elevation Echocardiogram showed-LVEF 10-15%, RVSP 30 mm, Cardiology Dr. England recommended continuation of heparin drip for 48 hours, recommended to start Plavix, aspirin, statin, beta-royer Continue aspirin 81 mg p.o. daily,sublingual nitroglycerin p.r.n., morphine for pain relief Started atorvastatin 80 mg p.o. daily, carvedilol 6.25 mg p.o. b.i.d. Will be holding heparin drip at 7:[address] England's recommendation Continue monitoring the patient in PCU with telemetry Acute on chronic Congestive heart failure stage III, class D with ejection fraction of 10-15 % likely due to methamphetamine use Patient reports severe shortness of breath at rest, orthopnea, PND Echocardiogram on 04/09 shows ejection fraction of 10-15% Chest x-ray shows pulmonary congestion and bilateral patchy infiltrates echocardiogram-LVEF 10-15%, RVSP-30 mm Hg, tricuspid insufficiency, mitral regurgitation Requested child support case officer for life vest Continue IV Lasix 20 mg b.i.d. Started on Jardiance 10 mg p.o. daily, carvedilol 6.25 mg p.o. b.i.d. Acute kidney injury on CKD stage IV marc due to cardiorenal syndrome Patient denies any dysuria, hematuria, oliguria Her BUN is 60, creatinine-1.99, EGFR 25 FENA <0.1 In view of patient elevated proBNP with history of congestive heart failure we are currently not giving any IV fluids, patient is started on IV Lasix 20 mg IV daily with strict input and output monitoring Avoid nephrotoxic drugs Acute exacerbation of COPD Patient has a history of COPD, she complains of shortness of breath Currently on room air Continue DuoNeb q.4h , albuterol q.2h p.r.n., Solu-Medrol 40 mg IV b.i.d. and incentive spirometry Started on ceftriaxone 1 g IV and azithromycin 500 mg IV daily Hypertension Patient has a history of hypertension, today's blood pressure was 148/80 Started on carvedilol 6.25 mg p.o. b.i.d. History of Polysubstance use Started on alcohol withdrawal protocol Substance navigator consulted, home health care social worker consulted Code Status: Full DVT prophylaxis: SCD Analgesia/Sedation: Morphine Line/tube: Peripheral Nutrition: Renal diet PT: Order Prognosis: Guarded Disposition: Patient will be monitored in PCU with 24 hours telemetry, per Cardiology recommendation we are holding heparin drip Kristal Zafar PGY1-Internal Medicine Resident Date of Service: Dec 28, 2024 Billing Provider: SAMEERA RUVALCABA MD, SATISH, RES Dec 28, 2024 17:57
[2024-12-28] MEDS: carvedilol 6.25mg tablet PO SCH (20:44)
[2024-12-28] MEDS: hydrALAZINE 20mg/ml inj. IV PRN (23:13)
[2024-12-29] VITALS (10 sets, daily range): BP systolic 140–160; BP diastolic 64–97; PULSE 70–87; RESP 14–20; TEMP 98–98.4; O2SAT 95–98
[2024-12-29 06:37] LABS: MEAN PLATELET VOLUME 7.8 FL (7.4-10.4); RED CELL DISTRIBUTION WIDTH 16.8 % (11.5-14.5)
[2024-12-29 06:42] LABS: INR 1.0 INR
[2024-12-29 06:43] LABS: CREATININE 2.05 MG/DL (0.40-0.90); PHOSPHORUS 4.0 MG/DL (2.3-4.5); TOTAL CARBON DIOXIDE 23.4 MMOL/L (24-32); eCRCL 25 ML/MIN; eGFR 25 ML/MIN
[2024-12-29] MEDS ORDERED: FURO-150 PO (08:15)
[2024-12-29] MEDS: methylPREDNISolone sod succ/PF 40mg inj. IV SCH (09:55)
[2024-12-29] MEDS ORDERED: EMPA10TA PO ×2 (10:57→12:38)
[2024-12-29] MEDS ORDERED: CARV-50 PO (10:57)
--- NOTE | 2024-12-29 21:11 | DISCHARGE SUMMARY-Residence ---
Discharge Summary Providers to CC Resident Creating Document: KRISTAL ZAFAR, RES ~ Discharge Summary Admission Diagnosis: NSTEMI,SHAUN,CHF Hospital Course DATE OF ADMISSION: 12/26/24 DATE OF DISCHARGE:12/29/24 Discharge Diagnosis\Comment: NSTEMI Type 2 NH Acute on chronic Congestive heart failure stage D, classIII with ejection fraction of 10-15 % Acute kidney injury on CKD stage IV likley due to cardiorenal syndrome Acute exacerbation of COPD Hypertension History of Polysubstance use Operations\Procedures: NONE Consultants: Cardiology Complications: NONE Condition on DC: Stable New Medications: Empagliflozin (Jardiance) 10 Mg Tablet 5 MG PO DAILY for 30 Days, #30 TAB 0 Refills Changed Medications: Carvedilol* (Coreg*) 12.5 Mg Tablet 1 TAB PO Q12H for 30 Days, #60 TAB (Changed from: Carvedilol 6.25 Mg Tablet 6.25 Mg PO BID 30 Days #60 TAB) Furosemide (Lasix) 20 Mg Tablet 20 MG PO BID for 30 Days, #60 TAB (Changed from: DAILY; 30) Continued Medications: Albuterol Sulfate (Albuterol Sulfate) 2.5 Mg/3 Ml Vial.neb 1 VIAL NEB Q2H PRN for wheezing, #1 INHALER 0 Refills Aspirin (Ecotrin*) 81 Mg Tablet.dr 1 TAB PO DAILY, #30 TAB.SR Atorvastatin Calcium (Atorvastatin Calcium) 40 Mg Tablet Clopidogrel Bisulfate (Clopidogrel) 75 Mg Tablet 75 MG PO DAILY, #30 TAB 1 Refill Do not stop medication unless instructed by prescriber. Ipratropium/Albuterol Sulfate (IPRAT-ALBUT 0.5-3(2.5) MG/3 ML nebule) 0.5 Mg-3 Mg (2.5 Mg Base)/3 Ml Ampul.neb 3 ML NEB Q4HRT, #1 INHALER Discontinued Medications: Empagliflozin (Jardiance) 10 Mg Tablet 10 MG PO DAILY, #30 TAB 1 Refill Home Med List (No Home Medications) Each Sacubitril/Valsartan (Entresto 24 mg-26 mg Tablet) 24 Mg-26 Mg Tablet 1 TABLET PO BID for 30 Days, #60 TAB Discharge Summary: History of present illness This is 59 years old female with a history of methamphetamine use, congestive heart failure with reduced ejection, COPD, chronic kidney disease stage 4, hypertension she was transferred from [facility] for cardiac evaluation in view of her elevated troponin at that center, patient endorses severe shortness of breath at rest from past 3 days associated orthopnea and PND additionally she mentioned nausea and back muscle aches at thoracic level on right side. Patient denies chest pain, palpitations, syncope, no history of recent weight gain, leg swelling, fever, cough or hemoptysis Patient has a history of congestive heart failure with reduced ejection fracture of 10% in March, she is currently on Entresto, Jardiance, carvedilol at home Hospital course 59 years old female with history of MEthamphetamine use was admitted for NSTEM (Type II), Echocardogram revealed LVEF 10-15 % with severe systolic dysfunction, Likley secondary to methamphetamine induced during hospital stay patient also has SHAUN stage IV due to cardiorenal syndrome , She was managed initially with heparin, IV lasix , carvedilol, Also treated for COPD exacerbation and HTN with substance use counselling. Patient was recovered sooner than expected and discharged with new medications Vital Signs Date Time Temp Pulse Resp B/P (MAP) Pulse Ox O2 Delivery O2 Flow Rate FiO2 12/29/24 14:46 80 16 Room Air 0.0 12/29/24 14:41 97 21 12/29/24 11:00 98.0 152/79 (103) Laboratory Tests Test 12/28/24 01:47 12/28/24 09:22 12/28/24 17:10 12/29/24 06:04 White Blood Count 13.9 X10'3 11.6 X10'3 Red Blood Count 4.49 X10'6 4.36 X10'6 Hemoglobin 12.9 g/dl 12.4 g/dl Hematocrit 38.0 % 37.3 % Mean Corpuscular Volume 84.8 FL 85.6 FL Mean Corpuscular Hemoglobin 28.6 PG 28.5 PG Mean Corpuscular Hemoglobin Concent 33.8 g/dL 33.3 g/dL Red Cell Distribution Width 16.9 % 16.8 % Platelet Count 398 X10'3 424 X10'3 Mean Platelet Volume 7.7 FL 7.8 FL Neutrophils (%) (Auto) 91.2 % 88.7 % Lymphocytes (%) (Auto) 5.9 % 6.5 % Monocytes (%) (Auto) 2.7 % 4.7 % Eosinophils (%) (Auto) 0 % 0 % Basophils (%) (Auto) 0.2 % 0.1 % Neutrophils # (Auto) 12.6 X10'3 10.3 X10'3 Lymphocytes # (Auto) 0.8 X10'3 0.8 X10'3 Monocytes # (Auto) 0.4 X10'3 0.5 X10'3 Eosinophils # (Auto) 0.0 X10'3 0.0 X10'3 Basophils # (Auto) 0.0 X10'3 0.0 X10'3 CBC Comment APTT (Heparin Protocol) 50 SECONDS 64 SECONDS 49 SECONDS Coagulation Comments Sodium Level 139 MMOL/L 136 MMOL/L Potassium Level 3.7 MMOL/L 4.0 MMOL/L Chloride Level 102 MMOL/L 101 MMOL/L Carbon Dioxide Level 26.4 MMOL/L 23.4 MMOL/L Anion Gap 11 12 Blood Urea Nitrogen 60 MG/DL 56 MG/DL Creatinine 1.99 MG/DL 2.05 MG/DL Estimated GFR/1.73 m2 25 ML/MIN 25 ML/MIN BUN/Creatinine Ratio 30.2 27.3 Glucose Level 146 MG/DL 161 MG/DL Calcium Level 8.6 MG/DL 8.6 MG/DL Total Bilirubin 0.6 MG/DL 0.4 MG/DL Aspartate Amino Transf (AST/SGOT) 18 U/L 13 U/L Alanine Aminotransferase (ALT/SGPT) 52 U/L 34 U/L Alkaline Phosphatase 99 IU/L 91 IU/L Total Protein 7.7 G/DL 7.7 G/DL Albumin 3.2 G/DL 3.1 G/DL Globulin 4.5 G/DL 4.6 G/DL Albumin/Globulin Ratio 0.7 0.7 Chemistry Comments Prothrombin Time 10.4 SECONDS INR International Normalized Ratio 1.0 INR Phosphorus Level 4.0 MG/DL Magnesium Level 2.1 MG/DL Lipase 20 U/L Physical examination GENERAL: Awake, alert, oriented x4 HEENT : Normocephalic, atraumatic, pupils equal and reactive to light, extraocular movements intact, no scleral icterus or conjunctival pallor, nasal mucosa is moist, oral mucosa moist NECK: neck is supple, trachea midline, no lymphadenopathy, no thyromegaly, no JV distention RESPIRATORY: Chest expansion equal bilaterally, bilateral crackles are heard on auscultation, no wheezes, or rhonchi. No use of accessory muscles, no tenderness on palpation. CARDIOVASCULAR: S1 and S2 heard, S3 is heard, no murmurs, no rubs, ABDOMEN: Soft, nontender, nondistended, bowel sounds present and normoactive. No organomegaly, no palpable mass, no rebound or guarding NEUROLOGICAL: Alert, oriented, normal memory, speech is normal Cranial nerves II-XII- intact Motor strength 3/5 in left upper and lower extremity vs 4/5 in right upper and lower extremity Sensation-intact in all extremities Reflexes +2 and symmetrical Coordination is intact EXTREMITIES: No Edema, peripheral pulses felt, no deformities Psychiatric:Appropriate mood and affect,No hallucinations or suicidal ideation Imaging in hospital Chest xray -Cardiomegaly with pulmonary vascular congestion and bilateral patchy airspace opacities. Small left pleural effusion. eCHOcardiogram :The LV is dilated in size with mild concentric hypertrophy. Overall systolic function is severely reduced. Overall LVEF is 10- 15%. Right ventricle is mildly dilated with reduced function. Estimated PA systolic pressure is 30 mmHg. Left atrium is mildly dilated. Trileaflet AV appears sclerotic without stenosis. Trace insufficiency. Mild MV annular calcification without stenosis. Mild regurgitation. TV appears structurally normal with mild regurgitation. Normal pericardium. No pericardial effusion seen. Discharge instructions: Follow up with PCP, Cardiology in a week started new medications-Empagliflozin (Jardiance) 10 Mg Tablet Carvedilol* (Coreg*) 12.5 Mg Tablet Furosemide (Lasix) 20 Mg Tablet *Problems/Diagnosis: (1) Acute kidney failure (2) Hypertension (3) NSTEMI (non-ST elevated myocardial infarction) Status: Acute (4) CHF exacerbation Status: Acute (5) Methamphetamine abuse Status: Acute Total Time Spent on D/C: Up to 30 Minutes Date of Service: Dec 29, 2024 Billing Provider: SAMEERA RUVALCABA MD, SATISH, RES Dec 29, 2024 21:11
== END 2024-12-29 14:55 | disposition home or self-care (01) | DRG 140 ==
LOC: ER 15:30 → ED HOLD 17:34 → EDBEDREQ 22:17 → PCU 3S 23:05
PROVIDERS: ADMIT Family Medicine; ATTEND Family Medicine
DX: J44.1 Chronic obstructive pulmonary disease with (acute) exacerbation (principal); I50.23 Acute on chronic systolic (congestive) heart failure; I21.A1 Myocardial infarction type 2; N17.9 Acute kidney failure, unspecified; I13.0 Hypertensive heart and chronic kidney disease with heart failure and stage 1 through stage 4 chronic kidney disease, or unspecified chronic kidney disease; N18.4 Chronic kidney disease, stage 4 (severe); F15.10 Other stimulant abuse, uncomplicated; F43.10 Post-traumatic stress disorder, unspecified; F17.200 Nicotine dependence, unspecified, uncomplicated; F31.9 Bipolar disorder, unspecified; Z86.73 Personal history of transient ischemic attack (TIA), and cerebral infarction without residual deficits; Z79.01 Long term (current) use of anticoagulants; Z79.82 Long term (current) use of aspirin; Z79.899 Other long term (current) drug therapy; Z90.710 Acquired absence of both cervix and uterus; Z90.49 Acquired absence of other specified parts of digestive tract
CPT/HCPCS: 36415; 71045; 80048; 80053; 80305; 81001; 82570; 83605; 83690; 83735; 83880; 83935; 84100; 84133; 84145; 84156; 84300; 84484; 85025; 85610; 85730; 87081; 87207; 93005; 93306; 94640; 94760; 99291; G0378; J0360; J0456; J0696; J1644; J1938; J2270; J2405; J2919; J3411; J3490; J7040